=== PATIENT | male | born 1995 | race Caucasian/White ===

== ENCOUNTER 2018-09-10 15:28 | Inpatient (IN) | payer MEDICAID, SELFPAY ==
[~2018-09-10] VITALS: Ht 177.8 cm; Wt 111.4 kg
[2018-09-10 16:08] LABS: HEMOGLOBIN 16.5 g/dl (13.5-17.5); MEAN CORPUSCULAR HGB CONC 35.9 g/dl (32.0-36.5); MEAN CORPUSCULAR VOLUME 86.5 fl (80.0-96.0); PLATELET COUNT, AUTOMATED 229 10^3/uL (150-450); RED BLOOD COUNT 5.32 10^6/uL (4.30-6.10); WHITE BLOOD COUNT 12.7 10^3/uL (4.0-10.0)
[2018-09-10 16:33] LABS: AMPHETAMINES LEVEL URINE NEGATIVE (NEGATIVE); BARBITURATES URINE NEGATIVE (NEGATIVE); BENZODIAZEPINES URINE NEGATIVE (NEGATIVE); CANNABINOIDS URINE NEGATIVE (NEGATIVE); COCAINE METABOLITE URINE NEGATIVE (NEGATIVE); METHADONE URINE NEGATIVE (NEGATIVE); OPIATES URINE NEGATIVE (NEGATIVE); PHENCYCLIDINE URINE NEGATIVE (NEGATIVE)
--- NOTE | 2018-09-10 18:00 | REP ---
Clinical: Trauma. Technique: AP, lateral, bilateral oblique views of the right ankle. Findings: Lateral swelling consist with inversion injury. No acute fracture or dislocation. Ankle mortise intact. Impression: Lateral swelling. No acute fracture. Electronically Signed by Cirilo Lee MD 09/10/2018 05:51 P
[2018-09-10 18:54] LABS: ACETAMINOPHEN LEVEL < 2.0 UG/ML (10.0-30.0); ALBUMIN 4.1 GM/DL (3.2-5.2); ALT/SGPT 77 U/L (12-78); BILIRUBIN,DIRECT 0.2 MG/DL (0.0-0.2); BILIRUBIN,TOTAL 0.8 MG/DL (0.2-1.0); BLOOD UREA NITROGEN 7 MG/DL (7-18); CALCIUM LEVEL 9.3 MG/DL (8.5-10.1); CARBON DIOXIDE LEVEL 26 MEQ/L (21-32); CHLORIDE LEVEL 103 MEQ/L (98-107); CREATININE FOR GFR 0.92 MG/DL (0.70-1.30); ETHYL ALCOHOL (ETHANOL) < 0.003 % (0.000-0.010); GLOMERULAR FILTRATION RATE > 60.0 (>60); GLUCOSE, FASTING 88 MG/DL (70-100); POTASSIUM SERUM 3.8 MEQ/L (3.5-5.1); SALICYLATE LEVEL < 1.7 MG/DL (5.0-30.0); SODIUM LEVEL 139 MEQ/L (136-145); TOTAL PROTEIN 8.2 GM/DL (6.4-8.2)
[2018-09-10] MEDS ORDERED: NICOTINE 21MG/24HR 1 EA TRANSDERMAL TD ONE (19:00)
[2018-09-10] MEDS ORDERED: MAALOX 30 ML SUSP *UDC PO PRN (19:45)
[2018-09-10] MEDS ORDERED: MOM 30ML SUSPENSION UDC PO PRN (19:45)
[2018-09-10 21:14] VITALS: BP 156/87
[2018-09-11 06:39] VITALS: BP 130/66
[2018-09-11] MEDS: hydrOXYzine 50 MG TAB PO PRN (08:08)
[2018-09-11] MEDS: NICOTINE 14 MG/24 HR TRANSDERMAL TD SCH (08:08)
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
[2018-09-11] MEDS ORDERED: SERTRALINE HCL 25 MG TABLET PO ONE (13:00)
[2018-09-11 18:00] VITALS: BP 158/84
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
[2018-09-11] MEDS: risperiDONE 1 MG TAB PO SCH (20:22)
[2018-09-12 06:36] VITALS: BP 132/67
[2018-09-12] MEDS: NICOTINE 14 MG/24 HR TRANSDERMAL TD SCH (08:51)
[2018-09-12] MEDS: SERTRALINE HCL 25 MG TABLET PO SCH (08:52)
--- NOTE | 2018-09-12 08:58 | MHIPNPDOC ---
[facility] Progress Note Progress Note DATE OF SERVICE: 09/12/18 HISTORY:Patient is a 23 -year-old , male, with no previous psych history who presented to the ED with his PO as he is currently on probation for stealing a 4-snow after he admitted to daily SI with plan to jump off a bridge and land on his head and snap his neck during a meeting early per ED. In ED pt stated he would work himself up to acting on his SI by telling himself "Today's the day... I'm going to do it" then talk himself out of it. Per ED, pt stated that he had few supports in his life and his parents were "sort of supportive, feeling lonely due to not being in a relationship currently and wanting to be, and wanting therapy so he didn't feel the way he did as believed it would help. Pt also stated in the ED the his main trigger for depression, anxiety, and SI was financial stress as he works two jobs and still has difficulty paying his bills. VITAL SIGNS: See below. NEW TEST RESULTS: See below. CURRENT MEDICATIONS: See below. MENTAL STATUS EXAMINATION: General Appearance: well groomed, appears stated age, hospital scrubs/clothing Build: average Demeanor: average Eye Contact: average Activity: average Behavior: cooperative Speech: clear, spontaneous, reg/rate,rhythm,volume Mood: less depressed and anxious Mood "much better" Affect: full, appropriate, congruent, less anxious Thought Process: logical/linear, intact, other (limited impulse control) Thought Content (Delusions): none reported, denies SI, HI, AVH Thought Content (Other): appropriate Thought Content (Aggressive): none reported Perception (Hallucinations): none reported Perception (Other): none reported Cognition (Impairment of): none reported Cognition(Intelligence Est.): other (below average secondary TBI) Oriented: Awake, Alert, Oriented times three Insight: fair Judgment: Fair Psychosis: Denies DIAGNOSES: Depression Unspecified R/O Impulse Control d/o secondary TBI Hx TBI Hx ADHD Mild Intellectual Ability ASSESSMENT:Pt seen and states that his mood is "much better" and appears less depressed and anxious, more positive, denies intrusive thoughts of being bullied as a child. States he slept very well last night and woke up refreshed this morning. Feels he is tolerating his medications and they're very beneficial. He is attending groups and finding them helpful. He denies SI/HI, hallucinations, delusions. Pt feels safe here. MANAGEMENT PLAN: continue plan. Medications: risperdal 1mg qhs zoloft 25mg daily vistaril 25mg q6hr prn anxiety haldol 5mg q6hr prn anxiety/agitation TIME SPENT: 30 minutes. Vital Signs Vital Signs Date Time Temp Pulse Resp B/P (MAP) Pulse Ox O2 Delivery O2 Flow Rate FiO2 09/12/18 06:36 97.8 72 14 132/67 (88) 09/10/18 21:14 98 09/10/18 15:33 Room Air Current Medications Current Medications Acetaminophen (Tylenol Tab) 650 mg Q6HP PRN PO HEADACHE or DISCOMFORT; Start 09/10/18 at 19:45 Al Hydrox/Mg Hydrox/Simethicone (Mylanta) 30 ml Q4HP PRN PO HEARTBURN/INDIGESTION; Start 09/10/18 at 19:45 Home Med (Med Rec Complete!) ASDIRECTED XX ; Start 09/10/18 at 19:15; Stop 09/10/18 at 19:15; Status DC Hydroxyzine HCl (Atarax) 50 mg Q6HP PRN PO ANXIETY/AGITATION Last administered on 09/11/18at 08:08; Start 09/10/18 at 19:45 Magnesium Hydroxide (Milk Of Magnesia) 30 ml DAILYPRN PRN PO CONSTIPATION; Start 09/10/18 at 19:45 Nicotine (Nicoderm Cq 14mg) 1 patch DAILY TD Last administered on 09/11/18at 08:08; Start 09/11/18 at 09:00 Risperidone (RisperDAL) 1 mg QHS PO Last administered on 09/11/18at 20:22; Start 09/11/18 at 21:00 Sertraline HCl (Zoloft) 25 mg DAILY PO ; Start 09/12/18 at 09:00 Trazodone HCl (Desyrel) 50 mg QHSP PRN PO INSOMNIA; Start 09/10/18 at 19:45 Allergies Coded Allergies: No Known Allergies (Unverified , 09/10/18) AUGUSTO WIGGINS DO Sep 12, 2018 8:58 am
[2018-09-12 18:14] VITALS: BP 139/91
[2018-09-12] MEDS: risperiDONE 1 MG TAB PO SCH (20:51)
[2018-09-13 06:26] VITALS: BP 146/80
[2018-09-13] MEDS: NICOTINE 14 MG/24 HR TRANSDERMAL TD SCH (08:37)
[2018-09-13] MEDS: SERTRALINE HCL 25 MG TABLET PO SCH (08:37)
--- NOTE | 2018-09-13 15:27 | MHIPN ---
DATE OF SERVICE: 09/13/2018 The patient today tells me "I'm feeling only positive energy." He says he is not having any suicidal thoughts. He also slept, and he has no complaints. MENTAL STATUS EXAMINATION: He is alert and oriented times three. Eye contact is fairly good. Psychomotor activity is normal. He is verbally spontaneous. There is no formal thought disorder noted. He says his mood is good. His affect if full range and appropriate. He is not psychotic, suicidal, or homicidal. Concentration is fair. Memory intact. Insight and judgment is fair. DIAGNOSES: Unspecified depressive disorder, rule out impulse control disorder secondary to traumatic brain injury (TBI), history of traumatic brain injury, history of attention deficit hyperactivity disorder (ADHD), and intellectual disability mild. TREATMENT PLAN: We will continue to monitor the patient for continued elevation and stabilization of his mood and for continued resolution of any suicidal ideations.
[2018-09-13] MEDS: hydrOXYzine 50 MG TAB PO PRN (17:50)
[2018-09-13] MEDS: ACETAMINOPHEN TAB 650MG DOSE (2X325MG) PO PRN (17:50)
[2018-09-13 18:03] VITALS: BP 150/85
[2018-09-13] MEDS: risperiDONE 1 MG TAB PO SCH (21:32)
[2018-09-13] MEDS: traZODone 50 MG TAB PO PRN (21:32)
[2018-09-14 05:58] VITALS: BP 144/76
--- NOTE | 2018-09-14 08:54 | MHIPNPDOC ---
[facility] Progress Note Progress Note DATE OF SERVICE: 09/14/18 HISTORY: Patient is a 23 -year-old , male, with no previous psych history who presented to the ED with his PO as he is currently on probation for stealing a 4-snow after he admitted to daily SI with plan to jump off a bridge and land on his head and snap his neck during a meeting early per ED. In ED pt stated he would work himself up to acting on his SI by telling himself "Today's the day... I'm going to do it" then talk himself out of it. Per ED, pt stated that he had few supports in his life and his parents were "sort of supportive, feeling lonely due to not being in a relationship currently and wanting to be, and wanting therapy so he didn't feel the way he did as believed it would help. Pt also stated in the ED the his main trigger for depression, anxiety, and SI was financial stress as he works two jobs and still has difficulty paying his bills. VITAL SIGNS: See below. NEW TEST RESULTS: See below. CURRENT MEDICATIONS: See below. MENTAL STATUS EXAMINATION: General Appearance: well groomed, appears stated age, hospital scrubs/clothing Build: average Demeanor: average Eye Contact: average Activity: average Behavior: cooperative Speech: clear, spontaneous, reg/rate,rhythm,volume Mood: less depressed and anxious Mood "good" Affect: full, appropriate, congruent, less anxious Thought Process: logical/linear, intact, other (limited impulse control) Thought Content (Delusions): none reported, denies SI, HI, AVH Thought Content (Other): appropriate Thought Content (Aggressive): none reported Perception (Hallucinations): none reported Perception (Other): none reported Cognition (Impairment of): none reported Cognition(Intelligence Est.): other (below average secondary TBI) Oriented: Awake, Alert, Oriented times three Insight: fair Judgment: Fair Psychosis: Denies DIAGNOSES: Depression Unspecified R/O Impulse Control d/o secondary TBI Hx TBI Hx ADHD Mild Intellectual Ability ASSESSMENT:Pt seen and states that his mood is "good" and appears less depressed and anxious, more positive, denies intrusive thoughts of being bullied as a child. States he slept very well last night. Feels he is tolerating his medications and they're very beneficial. He is attending groups and finding them helpful. He denies SI/HI, hallucinations, delusions. Pt feels safe here. MANAGEMENT PLAN: continue plan. Medications: risperdal 1mg qhs zoloft 25mg daily vistaril 25mg q6hr prn anxiety haldol 5mg q6hr prn anxiety/agitation TIME SPENT: 30 minutes. Vital Signs Vital Signs Date Time Temp Pulse Resp B/P (MAP) Pulse Ox O2 Delivery O2 Flow Rate FiO2 09/14/18 05:58 99.3 70 18 144/76 (98) 09/10/18 21:14 98 09/10/18 15:33 Room Air Current Medications Current Medications Acetaminophen (Tylenol Tab) 650 mg Q6HP PRN PO HEADACHE or DISCOMFORT Last administered on 09/13/18 17:50; Start 09/10/18 at 19:45 Al Hydrox/Mg Hydrox/Simethicone (Mylanta) 30 ml Q4HP PRN PO HEARTBURN/INDIGESTION; Start 09/10/18 at 19:45 Home Med (Med Rec Complete!) ASDIRECTED XX ; Start 09/10/18 at 19:15; Stop 09/10/18 at 19:15; Status DC Hydroxyzine HCl (Atarax) 50 mg Q6HP PRN PO ANXIETY/AGITATION Last administered on 09/13/18at 17:50; Start 09/10/18 at 19:45 Magnesium Hydroxide (Milk Of Magnesia) 30 ml DAILYPRN PRN PO CONSTIPATION; Start 09/10/18 at 19:45 Nicotine (Nicoderm Cq 14mg) 1 patch DAILY TD Last administered on 09/13/18at 08:37; Start 09/11/18 at 09:00 Risperidone (RisperDAL) 1 mg QHS PO Last administered on 09/13/18 21:32; Start 09/11/18 at 21:00 Sertraline HCl (Zoloft) 25 mg DAILY PO Last administered on 09/13/18at 08:37; Start 09/12/18 at 09:00 Trazodone HCl (Desyrel) 50 mg QHSP PRN PO INSOMNIA Last administered on 09/13/18 21:32; Start 09/10/18 at 19:45 Allergies Coded Allergies: No Known Allergies (Unverified , 09/10/18) AUGUSTO WIGGINS DO Sep 14, 2018 8:54 am
[2018-09-14] MEDS: SERTRALINE HCL 25 MG TABLET PO SCH (10:02)
[2018-09-14] MEDS: NICOTINE 14 MG/24 HR TRANSDERMAL TD SCH (10:02)
[2018-09-14] MEDS: ACETAMINOPHEN TAB 650MG DOSE (2X325MG) PO PRN (16:35)
[2018-09-14 18:00] VITALS: BP 145/100
[2018-09-14] MEDS: hydrOXYzine 50 MG TAB PO PRN (19:03)
[2018-09-14 19:04] VITALS: BP 158/102
[2018-09-14] MEDS: risperiDONE 1 MG TAB PO SCH (20:07)
[2018-09-14] MEDS: traZODone 50 MG TAB PO PRN (22:04)
[2018-09-15 06:39] VITALS: BP 130/82
[2018-09-15] MEDS: NICOTINE 14 MG/24 HR TRANSDERMAL TD SCH (08:19)
[2018-09-15] MEDS: SERTRALINE HCL 25 MG TABLET PO SCH (08:19)
[2018-09-15 18:04] VITALS: BP 145/76
[2018-09-15] MEDS: risperiDONE 1 MG TAB PO SCH (20:31)
[2018-09-15] MEDS: traZODone 50 MG TAB PO PRN (21:40)
[2018-09-16 06:00] VITALS: BP 147/74
[2018-09-16] MEDS: NICOTINE 14 MG/24 HR TRANSDERMAL TD SCH (09:18)
[2018-09-16] MEDS: SERTRALINE HCL 25 MG TABLET PO SCH (09:18)
[2018-09-16 18:03] VITALS: BP 136/78
[2018-09-16] MEDS: risperiDONE 1 MG TAB PO SCH (20:56)
[2018-09-16] MEDS: traZODone 50 MG TAB PO PRN (21:59)
[2018-09-17 06:00] VITALS: BP 109/61
[2018-09-17] MEDS: SERTRALINE HCL 25 MG TABLET PO SCH (08:45)
[2018-09-17] MEDS: NICOTINE 14 MG/24 HR TRANSDERMAL TD SCH (08:46)
[2018-09-17] MEDS ORDERED: NICO14PA TD (12:00)
[2018-09-17] MEDS ORDERED: SERT25TA88 PO (12:00)
[2018-09-17] MEDS ORDERED: RISP1TAB42 PO (12:00)
--- NOTE | 2018-09-17 12:16 | MHDSPDOC ---
[facility] Discharge Summary Discharge Summary DATE OF ADMISSION: Sep 10, 2018 at 19:40 DATE OF DISCHARGE: 09/17/18 Discharge Carlos Peters Male Date of Service: 09/17/2018 Diagnoses Unspecified depressive disorder. Mild intellectual inability. Major neurocognitive disorder, unspecified. History of Present Illness The patient is a 23-year-old man with no previous psychiatric history, presented to the emergency room after discussing suicidal ideation after encountering multiple psychosocial stressors. Noted that he had triggers at the time of financial stress and difficulty paying his bills. Consultants Involved Hospitalist screening. Treatment and Progress On The Unit The patient was admitted to the inpatient unit where he initially was observed to be amenable to treatment. He was subsequently started and tapered up to medications including Risperdal 1 mg at night, Zoloft 25 mg daily with PRN Vistaril and Haldol as needed for agitation that did well for controlling his agitation. He was subsequently noted to improve greatly with no further suicidal thoughts over the weekend and was able to verbalize effective discharge plans, reporting that he wanted to leave so that he can "go to work." He reported that he felt sufficiently well to return home. His primary doctor, Dr. Bass had slated him for discharge and he was deemed on the date of discharge to be safe for discharge at that time. Discharge Assessment A 23-year old man with a history of unspecified neurocognitive difficulties with a possible adjustment problem. He has multiple potential neurological correlates such as ADHD and a potential TBI that could cause him to experience emotions more intensely and thus be less able to adapt to his emotional setting. He was deemed safe for discharge as he was not demonstrating any suicidal or homicidal ideation. He demonstrated no psychosis and was able to verbalize an effective discharge plan. Mental Status Examination General: Well dressed with good hygiene Speech: Spontaneous and fluid Thought processes: Linear and logical MSK: Smooth and coordinated gait, no signs of tremors or involuntary orofacial movements Thought content: Future orientated Abstract reasoning, and computation: Intact Description of associations: Intact Description of abnormal or psychotic thoughts: Denies any suicidal or homicidal ideation. Denies any auditory or visual hallucinations. Does not appear to be responding to internal stimuli. Does not appear to be endorsing any bizarre or paranoid ideation. Judgment: fair Insight: fair Orientation: Alert and orientated 3 Cognition: Grossly normal Recent and remote memory: Intact Attention span and concentration: Intact Fund of knowledge: Below average secondary to reported TBI. Mood: "okay" Affect: Euthymic with a full range Follow Up The social work team worked during the predischarge meeting in order to evaluate for further issues of lethality address them fully before discharge. They worked on safety planning with the patient's family members in order to ensure that the patient will have a safe and effective discharge. Lipid panel and A1c completed showing some increased lipids however, it was not fasting, but should be followed up by outpatient provider if continued on risperidone The amount of time spent in the coordination of care for this patient was approximately 30 minutes. Vital Signs/I&Os Vital Signs Date Time Temp Pulse Resp B/P (MAP) Pulse Ox O2 Delivery O2 Flow Rate FiO2 09/17/18 06:00 98.0 84 18 109/61 (77) 09/15/18 06:39 100 Laboratory Data Labs 24H Laboratory Tests 09/17/18 13:06: Estimated Mean Plasma Glucose 103, Hemoglobin A1c 5.2, Triglycerides Level 167H, LDL Cholesterol 141H, Total Cholesterol 212H, Non-HDL Cholesterol (LDL + VLDL) 174, Total HDL Cholesterol 38L, Cholesterol/HDL Ratio 5.578H Medications Scheduled Nicotine (Nicotine Patch) 14 Mg Patch.td24, 1 PATCH TD DAILY for smoking for 30 Days, #30 Risperidone (Risperdal) 1 Mg Tablet, 1 MG PO QHS for mood for 7 Days, #7 Sertraline HCl (Sertraline HCl) 25 Mg Tablet, 25 MG PO DAILY for mood for 7 Days, #7 Allergies Coded Allergies: No Known Allergies (Unverified , 09/10/18) SAVI COLLINS DO Sep 17, 2018 12:16
[2018-09-17 13:54] LABS: HEMOGLOBIN A1c 5.2 %
[2018-09-17 13:57] LABS: CHOLESTEROL RISK RATIO 5.578 (<5)
== END 2018-09-17 14:30 | disposition home or self-care (01) | DRG 754 ==
LOC: M ED 15:28 → M ED INP 19:40 → M PSY 21:00
PROVIDERS: ADMIT Psychiatry & Neurology Psychiatry; ATTEND Psychiatry & Neurology Psychiatry
DX: F32.9 Major depressive disorder, single episode, unspecified (principal); F71 Moderate intellectual disabilities; F01.50 Vascular dementia, unspecified severity, without behavioral disturbance, psychotic disturbance, mood disturbance, and anxiety; R45.851 Suicidal ideations; Z59.8 Other problems related to housing and economic circumstances

== ENCOUNTER 2019-04-18 21:59 | Inpatient (IN) | payer MEDICAID, OTHER ==
[~2019-04-18] VITALS: Ht 180.3 cm; Wt 107.2 kg
[~2019-04-18 21:59] MED LIST: NICO14PA TD; RISP1TAB42 PO; SERT25TA21 PO
[2019-04-18 23:22] LABS: HEMATOCRIT 41.6 % (42.0-52.0); HEMOGLOBIN 14.4 g/dl (13.5-17.5); MEAN CORPUSCULAR HEMOGLOBIN 29.9 pg (27.0-33.0); MEAN CORPUSCULAR HGB CONC 34.6 g/dl (32.0-36.5); MEAN CORPUSCULAR VOLUME 86.5 fl (80.0-96.0); PLATELET COUNT, AUTOMATED 192 10^3/uL (150-450); RED BLOOD COUNT 4.81 10^6/uL (4.30-6.10); WHITE BLOOD COUNT 7.9 10^3/uL (4.0-10.0)
[2019-04-18 23:43] LABS: AMPHETAMINES LEVEL URINE NEGATIVE (NEGATIVE); BARBITURATES URINE NEGATIVE (NEGATIVE); BENZODIAZEPINES URINE NEGATIVE (NEGATIVE); CANNABINOIDS URINE POSITIVE (NEGATIVE); COCAINE METABOLITE URINE NEGATIVE (NEGATIVE); METHADONE URINE NEGATIVE (NEGATIVE); OPIATES URINE NEGATIVE (NEGATIVE); PHENCYCLIDINE URINE NEGATIVE (NEGATIVE)
[2019-04-18 23:57] LABS: ACETAMINOPHEN LEVEL < 2.0 UG/ML (10.0-30.0); ALBUMIN 3.6 GM/DL (3.2-5.2); ALT/SGPT 45 U/L (12-78); BILIRUBIN,DIRECT 0.1 MG/DL (0.0-0.2); BILIRUBIN,TOTAL 0.3 MG/DL (0.2-1.0); BLOOD UREA NITROGEN 8 MG/DL (7-18); CALCIUM LEVEL 8.7 MG/DL (8.5-10.1); CARBON DIOXIDE LEVEL 28 MEQ/L (21-32); CHLORIDE LEVEL 107 MEQ/L (98-107); CREATININE FOR GFR 0.88 MG/DL (0.70-1.30); ETHYL ALCOHOL (ETHANOL) < 0.003 % (0.000-0.010); GLOMERULAR FILTRATION RATE > 60.0 (>60); GLUCOSE, FASTING 90 MG/DL (70-100); POTASSIUM SERUM 3.9 MEQ/L (3.5-5.1); SALICYLATE LEVEL < 1.7 MG/DL (5.0-30.0); SODIUM LEVEL 141 MEQ/L (136-145); TOTAL PROTEIN 7.4 GM/DL (6.4-8.2)
--- NOTE | 2019-04-19 06:00 | ECGEPIP ---
[facility] - ED Test Date: 2019-04-19 Pat Name: JOHN FARAH Department: Room: - Gender: Male Process Stripper: sb : 1995 Requested By: TERRENCE Stone Order Number: [id number] Reading MD: Rambo Maritnez Measurements Intervals [place] Rate: 78 P: 58 VT: 151 QRS: 54 QRSD: 96 T: 38 QT: 384 QTc: 438 Interpretive Statements SINUS RHYTHM WITH OCCASIONAL VENTRICULAR PREMATURE COMPLEXES POSSIBLE INCOMPLETE RIGHT BUNDLE BRANCH BLOCK BENIGN EARLY REPOLARIZATION NO PRIORS FOR COMPARISON Electronically Signed on 04-19-2019 5:59:59 EST by Rambo Martinez
[2019-04-19] MEDS ORDERED: MOM 30ML SUSPENSION UDC PO PRN (15:00)
[2019-04-19] MEDS ORDERED: traZODone 50 MG TAB PO PRN (15:00)
[2019-04-19] MEDS ORDERED: MAALOX 30 ML SUSP *UDC PO PRN (15:00)
[2019-04-19] MEDS ORDERED: ACETAMINOPHEN TAB 650MG DOSE (2X325MG) PO PRN (15:00)
[2019-04-19 15:38] VITALS: BP 142/88
[2019-04-19] MEDS: NICOTINE 21MG/24HR 1 EA TRANSDERMAL TD SCH (17:23)
[2019-04-20 05:57] VITALS: BP 133/56
[2019-04-20] MEDS ORDERED: INFLUENZA QUADRIVALENT PF VACCINE 0.5ML SYRINGE (90686) IM ONE (09:00)
[2019-04-20] MEDS: NICOTINE 21MG/24HR 1 EA TRANSDERMAL TD SCH (09:22)
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
[2019-04-20] MEDS ORDERED: SERTRALINE HCL 50 MG TAB PO ONE (11:00)
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
[2019-04-20 16:16] VITALS: BP 130/88
[2019-04-20] MEDS: MIRTAZAPINE 15 MG TAB PO SCH (23:28)
[2019-04-21 06:30] VITALS: BP 132/75
[2019-04-21] MEDS: NICOTINE 21MG/24HR 1 EA TRANSDERMAL TD SCH (09:03)
[2019-04-21] MEDS: SERTRALINE HCL 50 MG TAB PO SCH (09:03)
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
[2019-04-21 16:05] VITALS: BP 134/74
[2019-04-21] MEDS: MIRTAZAPINE 15 MG TAB PO SCH (23:02)
[2019-04-22 06:47] VITALS: BP 136/81
[2019-04-22] MEDS: SERTRALINE HCL 50 MG TAB PO SCH (09:23)
[2019-04-22] MEDS: NICOTINE 21MG/24HR 1 EA TRANSDERMAL TD SCH (09:23)
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
[2019-04-22 16:19] VITALS: BP 149/69
[2019-04-22] MEDS: MIRTAZAPINE 15 MG TAB PO SCH (21:37)
[2019-04-23 06:25] VITALS: BP 128/70
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
[2019-04-23] MEDS: SERTRALINE HCL 50 MG TAB PO SCH (09:14)
[2019-04-23] MEDS: NICOTINE 21MG/24HR 1 EA TRANSDERMAL TD SCH (09:15)
[2019-04-23 15:41] VITALS: BP 132/82
[2019-04-23] MEDS: MIRTAZAPINE 15 MG TAB PO SCH (21:17)
[2019-04-24 06:06] VITALS: BP 134/85
[2019-04-24] MEDS: SERTRALINE HCL 50 MG TAB PO SCH (08:30)
[2019-04-24] MEDS: NICOTINE 21MG/24HR 1 EA TRANSDERMAL TD SCH (08:31)
[2019-04-24] MEDS ORDERED: REME15TA PO (08:40)
[2019-04-24] MEDS ORDERED: SERT50TA29 PO (08:40)
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
== END 2019-04-24 10:55 | disposition home or self-care (01) | DRG 754 ==
LOC: M ED 21:59 → M ED INP 04-19 14:50 → M PSY 04-19 15:54
PROVIDERS: ADMIT Psychiatry & Neurology Psychiatry; ATTEND Psychiatry & Neurology Psychiatry
DX: F32.9 Major depressive disorder, single episode, unspecified (principal); F70 Mild intellectual disabilities; E66.9 Obesity, unspecified; F43.23 Adjustment disorder with mixed anxiety and depressed mood; F17.200 Nicotine dependence, unspecified, uncomplicated

== ENCOUNTER 2020-02-27 23:12 | Emergency (ER) | payer MEDICAID ==
[~2020-02-27] VITALS: Ht 180.3 cm; Wt 157.9 kg
[~2020-02-27 23:12] MED LIST changes: +MIRT-62 PO; +SERT50TA29 PO
[2020-02-27 23:14] VITALS: BP 143/96
== END 2020-02-28 02:43 | disposition left against medical advice (07) ==
LOC: M ED 23:12
DX: Z53.21 Procedure and treatment not carried out due to patient leaving prior to being seen by health care provider (principal)

== ENCOUNTER → 2020-02-28 | Outpatient (CLI) | payer MEDICAID ==
--- NOTE | 2020-02-28 13:28 | REP ---
INDICATION: PAIN IN RIGHT ANKLE AND JOINTS OF RIGHT FOOT COMPARISON: 09/10/2018. TECHNIQUE: Four views. FINDINGS: I suspect there is soft tissue edema laterally. This should be confirmed clinically. There is no fracture or dislocation. Mineralization is normal. There are no calcifications or foreign bodies. IMPRESSION: No fracture or dislocation. Probable soft tissue edema laterally. This should be confirmed clinically. <Electronically signed by Osorio Lo > 02/28/20 9500
== END ==
LOC: M ADAMS 09:23
PROVIDERS: ATTEND Physician Assistant
DX: M25.571 Pain in right ankle and joints of right foot (principal)

== ENCOUNTER → 2020-12-18 | Outpatient (REF) | payer MEDICAID ==
[2020-12-18 22:03] LABS: GC DNA AMPLIFICATION NEGATIVE (NEGATIVE)
== END ==
LOC: M LAB REF 19:34
PROVIDERS: ATTEND Physician Assistant
DX: R30.0 Dysuria (principal)

== ENCOUNTER 2021-02-06 01:19 | Emergency (ER) | payer MEDICAID ==
[~2021-02-06] VITALS: Ht 175.3 cm; Wt 113.6 kg
--- OUTSIDE RECORDS SUMMARY | 2021-02-06 01:27 | CCD | Continuity of Care Document ---
Author Author Carlos COOK Organization Unknown Address [address] [place] [address] Phone [phone] Care Team Providers Care Paper Bag Press Operator Name Role Phone [facility] AUTM [phone] Problems Description No Information Available Social History Type Date Description Comments Sex Unknown ETOH Use Occasionally consumes alcohol Recreational Drug Use daily marijuana user Tobacco Use Start: Unknown End: Unknown Patient is a former smoker quit 10/2020 Tobacco Use Start: Unknown Patient Currently Vapes 5% Smoking Status Reviewed: 02/28/20 Patient Currently Vapes 5% Allergies, Adverse Reactions, Alerts Description No Known Drug Allergies Medications Active Medications SIG Qnty Indications Ordering Provide r Date Preparation H Unknown Immunizations Description No Information Available Vital Signs Date Vital Result Comment 12/18/2020 5:57pm BP Systolic 128 mmHg BP Diastolic 82 mmHg Heart Rate 83 /min Respiratory Rate 14 /min O2 % BldC Oximetry 96 % Body Temperature 97.1 F Weight 236.00 lb Height 70 inches 5'10" BMI (Body Mass Index) 33.9 kg/m2 Pain Level 2 02/28/2020 8:55am BP Systolic 147 mmHg BP Diastolic 94 mmHg Heart Rate 81 /min Respiratory Rate 16 /min O2 % BldC Oximetry 98 % Body Temperature 98.9 F Weight 250.00 lb Height 70 inches 5'10" BMI (Body Mass Index) 35.9 kg/m2 Pain Level 7 Results Test Acquired Date Facility Test Result H/L Range Note Laboratory test finding 12/18/2020 [facility] [address] [place], [place] [id number] [phone] Urine Culture <pending> Procedures Date Code Description Status 12/18/2020 24380 Office/Outpatient Established Lo w MDM 20-29 Min Completed Medical Devices Description No Information Available Encounters Type Date Location Provider Dx Diagnosis Office Visit 12/18/2020 5:25p Main Office HERNÁN Ravi R30 .0 Dysuria J06.9 Acute upper respiratory infe ction, unspecified Z20.828 Contact w and exposure to ot h viral communicable diseases Assessments Date Code Description Provider 12/18/2020 R30.0 Dysuria HERNÁN Lees 12/18/2020 J06.9 Acute upper respiratory infectio n, unspecified HERNÁN Ravi 12/18/2020 Z20.828 Contact with and (castañeda spected) exposure to other viral communicable diseases HERNÁN Ravi Plan of Treatment No Information Available Functional Status Description No Information Available Mental Status Description No Information Available Referrals Description No Information Available
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
--- OUTSIDE RECORDS SUMMARY | 2021-02-06 01:27 | CCD | Continuity of Care Document ---
Author Author Carlos COOK Organization Unknown Address [address] [place] [address] Phone [phone] Care Team Providers Care Veterinarian Assistant Name Role Phone [facility] AUTM [phone] Problems Description No Information Available Social History [...] H/L Range Note Laboratory test finding 12/18/2020 [facility] [address] [place], [place] [address] [phone] Urine Culture <pending> Procedures Date Code Description Status 12/18/2020 89418 Office/Outpatient Established Lo w MDM 20-29 Min [...]
--- OUTSIDE RECORDS SUMMARY | 2021-02-06 01:27 | CCD | Continuity of Care Document ---
Author Author Carlos COOK Organization Unknown Address [address] [place] [address] Phone [phone] Care Team Providers Care Diesel Engine Erector Name Role Phone [facility] AUTM [phone] Problems Description No Information Available Social History [...] H/L Range Note Laboratory test finding 12/18/2020 [facility] [address] [place] [address] [phone] Urine Culture FULL REPORT IN L <SEE NOTE> Normal 1 Chlamydia, GC & Trich Amp 12/18/[address] [facility] [address] [address] [phone] Chlamydia Dna Amplification NEGATIVE Normal Nega tive 2 GC Dna Amplification NEGATIVE Normal Negative 3 Trichomonas vaginalis (Amp) NOT DETECTED Normal Negative 4 1 FULL REPORT IN LAB NOTES (eC W and [facility]). NO GROWTH CLINICAL SIGNIFICANCE 1 ORGANISM 2 A negative test result does not exclude the possibility of infection because test results may be affected by improper specimen collection, technical error, specimen mix-up, concurrent antibiotic therapy, or the number of organisms in the specimen which may be below the sensitivity of the test. 3 A negative test result does not exclude the possibility of infection because test results may be affected by improper specimen collection, technical error, specimen mix-up, concurrent antibiotic therapy, or the number of organisms in the specimen which may be below the sensitivity of the test. 4 A negative test result does not exclude the possibility of infection because test results may be affected by improper specimen collection, technical error, sample mix-up, or because the number of organisms in the sample is below the limit of detection of the test. Procedures Date Code Description Status 12/18/2020 02969 Office/Outpatient Established Lo w MDM 20-29 Min [...]
--- OUTSIDE RECORDS SUMMARY | 2021-02-06 01:27 | CCD ---
Author Author Carlos Arzate Organization Unknown Address [address] [address] Phone Care Team Providers Care Clinical Program Manager Name Role Phone Marivel Arzaet PCP Allergies, Adverse Reactions, Alerts No Data in Section Problem List Concept Problem Description Status Start Date Created Date Resolv ed Date Snomed Code F43.9 Unspecified Trauma- and Stressor-Related Disorder Active 01/26/2021 F12.20 Cannabis Use Disorder, Moderate Active 01/27/20 21 Z72.0 Tobacco Use Disorder, Mild Active 01/26/2021 Medications No Data in Section Social History Social History Element Description Concept Effective Date Smoking Status Unknown if ever smoked [id number] Immunizations No Data in Section Vital Signs No Data in Section Procedures Date Concept Id Description Targeted Site Concept Targeted Site Concept Type 01/25/2021 62571 Extended Individual Psychotherapy - 45 min CPT Patient has no history of implantable de vices Encounters Encounter Start Date End Date Encounter Type Description Diagnosis Di agnosis Desc Location Author First Name Author Last Name Npid Taxonomy Cod e Taxonomy Desc Phone Number Location Addr1 Location Addr2 Location [facility] Location [facility] Location [facility] [id number] 01/25/2021 01/25/2021 02293 Extended Individual Psych otherapy - 45 min F43.9 Reaction to severe stress, unspecified [facility] Huey Orta [id number] Tank Erector [phone] [address] [address] Plan of Treatment No Data in Section Lab Results No Data in Section Instructions No Data in Section Insurance Providers Insurance Id Policy Effective Date Policy Thru Date Company N z[employer]ya [id number] 2020 [employer] Managed M' caijoanne
--- OUTSIDE RECORDS SUMMARY | 2021-02-06 01:27 | CCD | Continuity of Care Document ---
Author Author Carlos COOK Organization Unknown Address [address] [place] [address] Phone [phone] Care Team Providers Care Spring Tester Name Role Phone [facility] AUTM [phone] Problems Description No Information Available Social History [...] Date Facility Test Result H/L Range Note Chlamydia, GC & Trich Amp 12/18/2020 [facility] [address] [place], [place] [address] [phone] Chlamydia Dna Amplification NEGATIVE Normal Nega tive 1 GC Dna Amplification NEGATIVE Normal Negative 2 Trichomonas vaginalis (Amp) NOT DETECTED Normal Negative 3 1 A negative test result does not exclude the possibility of infection because test results may be affected by improper specimen collection, technical error, specimen mix-up, concurrent antibiotic therapy, or the number of organisms in the specimen which may be below the sensitivity of the test. 2 A negative test result does not [...] test. Procedures Date Code Description Status 12/18/2020 95389 Office/Outpatient Established Lo w MDM 20-29 Min [...] J06.9 Acute upper respiratory infectio n, unspecified EHRNÁN Ravi 12/18/2020 Z20.828 Contact with and (castañeda spected) exposure to other viral communicable diseases HERNÁN Ravi Plan of Treatment No Information Available Functional Status Description No Information Available Mental Status Description No Information Available Referrals Description No Information Available
--- OUTSIDE RECORDS SUMMARY | 2021-02-06 01:27 | CCD ---
Author Author Carlos Arzate Organization Unknown Address [address] [address] Phone Care Team Providers Care Gun Welder Name Role Phone Marivel Arzate PCP Chief Complaint and Reason for Visit Chief Complaint Allergies, Adverse Reactions, Alerts No Data in Section Problem List Concept Problem Description Status Start Date Created Date Resolv ed Date Snomed Code F43.9 Unspecified Trauma- and Stressor-Related Disorder Active 11/24/2020 F12.20 Cannabis Use Disorder, Moderate Active 11/25/19 21 Z72.0 Tobacco Use Disorder, Mild Active 11/24/2020 Medications No Data in Section Social History Social History Element Description Concept Effective Date Smoking Status Unknown if ever smoked [id number] Immunizations No Data in Section Vital Signs No Data in Section Procedures Date Concept Id Description Targeted Site Concept Targeted Site Concept Type 11/23/2020 49811 Extended Individual Psychotherapy - 45 min CPT Patient has no history of implantable de vices Encounters Encounter Start Date End Date Encounter Type Description Diagnosis Di agnosis Desc Location Author First Name Author Last Name Npid Taxonomy Cod e Taxonomy Desc Phone Number Location Addr1 Location Addr2 Location [facility] Location [facility] Location [facility] [id number] 11/23/2020 11/23/2020 11626 Extended Individual Psych otherapy - 45 min F43.9 Reaction to severe stress, unspecified [facility] Huey Orta [id number] [facility] [phone] [address] [address] Plan of Treatment No Data in Section Lab Results No Data in Section Instructions No Data in Section Insurance Providers Insurance Id Policy Effective Date Policy Thru Date Company N z[employer] [id number] 2020 [employer] Managed M' caid
--- OUTSIDE RECORDS SUMMARY | 2021-02-06 01:28 | CCD ---
Author Author [facility] Organization [facility] Address Unknown Phone Unavailable Care Team Providers Care Campus Security Director Name Role Phone JOEY, Jeffery THORNTON PA Unavailable Unavailable LETTIERE, Jeffery THORNTON PA Unavailable Unavailable LETTIERE, Jeffery THORNTON PA Unavailable Unavailable LETTIERE, Jeffery THORNTON PA Unavailable Unavailable LETTIERE, Jeffery THORNTON PA Unavailable Unavailable LETTIERE, Jeffery THORNTON PA Unavailable Unavailable LETTIERE, Jeffery THORNTON PA Unavailable Unavailable LETTIERE, Jeffery THORNTON PA Unavailable Unavailable LETTIERE, Jeffery THORNTON PA Unavailable Unavailable LETTIERE, Jeffery THORNTON PA Unavailable Unavailable LETTIERE, A HILLARY PA Unavailable Unavailable LETTIERE, A HILLARY PA Unavailable Unavailable LETTIERE, A HILLARY PA Unavailable Unavailable LETTIERE, A HILLARY PA Unavailable Unavailable LETTIERE, A HILLARY PA Unavailable Unavailable LETTIERE, A HILLARY PA Unavailable Unavailable LETTIERE, A HILLARY PA Unavailable Unavailable LETTIERE, A HILLARY PA Unavailable Unavailable LETTIERE, A HILLARY PA Unavailable Unavailable LETTIERE, A HILLARY PA Unavailable Unavailable LETTIERE, A HILLARY PA Unavailable Unavailable LETTIERE, A HILLARY PA Unavailable Unavailable LETTIERE, A HILLARY PA Unavailable Unavailable LETTIERE, A HILLARY PA Unavailable Unavailable LETTIERE, A HILLARY PA Unavailable Unavailable LETTIERE, A HILLARY PA Unavailable Unavailable LETTIERE, A HILLARY PA Unavailable Unavailable LETTIERE, A HILLARY PA Unavailable Unavailable LETTIERE, A HILLARY PA Unavailable Unavailable LETTIERE, A HILLARY PA Unavailable Unavailable LETTIERE, A HILLARY PA Unavailable Unavailable Jefe Jeri Unavailable MARCOS, ABDI PA Unavailable Unavailable MARCOS, ABDI PA Unavailable Unavailable MARCOS, ABDI PA Unavailable Unavailable MARCOS, ABDI PA Unavailable Unavailable MARCOS, ABDI PA Unavailable Unavailable MARCOS, ABDI PA Unavailable Unavailable MARCOS, ABDI PA Unavailable Unavailable MARCOS, ABDI PA Unavailable Unavailable MARCOS, ABDI PA Unavailable Unavailable MARCOS, ABDI PA Unavailable Unavailable MARCOS, ABDI PA Unavailable Unavailable MARCOS, ABDI PA Unavailable Unavailable MARCOS, ABDI PA Unavailable Unavailable MARCOS, ABDI PA Unavailable Unavailable MARCOS, ABDI PA Unavailable Unavailable MARCOS, ABDI PA Unavailable Unavailable MARCOS, ABDI PA Unavailable Unavailable MARCOS, ABDI PA Unavailable Unavailable MARCOS, ABDI PA Unavailable Unavailable MARCOS, ABDI PA Unavailable Unavailable MARCOS, ABDI PA Unavailable Unavailable MARCOS, ABDI PA Unavailable Unavailable MARCOS, ABDI PA Unavailable Unavailable MARCOS, ABDI PA Unavailable Unavailable MARCOS, ABDI PA Unavailable Unavailable MARCOS, ABDI PA Unavailable Unavailable MARCOS, ABDI PA Unavailable Unavailable MARCOS, ABDI PA Unavailable Unavailable MARCOS, ABDI PA Unavailable Unavailable MARCOS, ABDI PA Unavailable Unavailable MARCOS, ABDI PA Unavailable Unavailable MARCOS, ABDI PA Unavailable Unavailable MARCOS, ABDI PA Unavailable Unavailable MARCOS, ABDI PA Unavailable Unavailable MARCOS, ABDI PA Unavailable Unavailable MARCOS, ABDI PA Unavailable Unavailable Ramon Najera Unavailable [phone] Ramon Najera Unavailable [phone] Ramon Najera Unavailable [phone] Ramon Najera Unavailable [phone] Ramon Najera Unavailable [phone] Ramon Najera Unavailable [phone] Emma Marx Unavailable Unavailable Emma Marx Unavailable Unavailable Emma Marx Unavailable Unavailable Marivel Arzate Unavailable Marivel Arzate Unavailable Re-disclosure Warning The records that you are about to access may contain information from federally-assisted alcohol or drug abuse programs. If such information is present, then the following federally mandated warning applies: This information has been disclosed to you from records protected by federal confidentiality rules (42 CFR part 2). The federal rules prohibit you from making any further disclosure of this information unless further disclosure is expressly permitted by the written consent of the person to whom it pertains or as otherwise permitted by 42 CFR part 2. A general authorization for the release of medical or other information is NOT sufficient for this purpose. The Federal rules restrict any use of the information to criminally investigate or prosecute any alcohol or drug abuse patient.The records that you are about to access may contain highly sensitive health information, the redisclosure of which is protected by Article 27-F of the [facility] Public Health law. If you continue you may have access to information: Regarding HIV / AIDS; Provided by facilities licensed or operated by the [facility] Office of Mental Health; or Provided by the [facility] Office for People With Developmental Disabilities. If such information is present, then the following [facility] mandated warning applies: This information has been disclosed to you from confidential records which are protected by state law. State law prohibits you from making any further disclosure of this information without the specific written consent of the person to whom it pertains, or as otherwise permitted by law. Any unauthorized further disclosure in violation of state law may result in a fine or intermediate sentence or both. A general authorization for the release of medical or other information is NOT sufficient authorization for further disc losure. Family History Family Member Name Family Member Gender Family Member Status Date o f Status Description Data Source(s) Unknown Female Problem [facility] ([facility]) Unknown Female Problem [facility] ([facility]) Encounters Encounter Providers Location Date Indications Data Source(s ) Attender: Marivel Arzate 01/26/2021 12:00:[address] [facility]) Extended Individual Psychotherapy - 45 min Attender: Christian Botello [facility] 01/25/2021 01:00:00 AM EST - 01/25/2021 01:00:00 AM EST [facility] ([facility]) Attender: Marivel Arzate 01/18/2021 12:00:[address] [facility] ([facility]) Psychiatric Diagnostic Evaluation (Non-Medical) Attender: Shelby jim Arzate [facility] 01/15/2021 10:30:00 AM EDT - 01/15/2021 10:30:00 AM EDT [facility] ([facility]) Outpatient Attender: Ramon Najera 12/30 05:21:07 PM EDT - 12/30/2020 06:42:33 PM EDT [facility] ([facility] ) Outpatient Attender: HILLARY driscoll 12/18/2020 05:25:00 PM EDT [facility] ([facility]) Extended Individual Psychotherapy - 45 min Attender: Christian Botello [facility] 11/23/2020 09:00:00 AM EDT - 11/23/2020 09:00:00 AM EDT [facility] ([facility]) Attender: Marivelantonina Arzate 11/23/2020 12:00:00 AM E DT [facility] ([facility]) Extended Individual Psychotherapy - 45 min Attender: Kelsey Mayberry [facility] 10/28/2020 11:45:00 AM EDT - 10/28/2020 11:45:00 AM EDT [facility] ([facility]) Attender: Jeri Mayberry 10/28/2020 12:00:00 AM EDT [facility] ([facility]) Outpatient Attender: Emma Marx 08/04/2020 10:00:00 AM [facility] Outpatient Attender: ABDI edwards 02/28/2020 07:15:00 AM EST [facility] ([facility]) Immunizations Vaccine Date Status Description Data Source(s) COVID-19 VACCINE Moderna 08/25/2020 12:00:00 AM EDT completed [facility] Vaccine Series Complete: NOThis Data was Submitted to [facility] Via [facility]. COVID-19 VACCINE Moderna 07/28/2020 12:00:00 AM EDT completed [facility] Vaccine Series Complete: YESThis Data wa s Submitted to [facility] Via [facility]. Medications Medication Brand Name Start Date Product Form Dose Route Admi nistrative Instructions Pharmacy Instructions Status Indications Reaction Description Data Source(s) Naproxen 500 MG Oral Tablet Naproxen 02/28/2020 12:00:00 AM EST ORAL active [facility] ([facility]) No Active Medications 02/28/2020 12:00:00 AM EST completed [facility] ([facility], [facility]) Insurance Providers Payer name Policy type / Coverage type Policy ID Covered green party ID Covered green party's relationship to hodge Policy Hodge Plan Information [employer] 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 Workers Compensation [id number] Self [facility] [employer] [id number] Self [id number] [facility] (HMO) [id number] 74 2.840.1.515984.3.227.99.6968.3644.0 Family Dependent Y [id number] [facility] (HMO) [id number] 74 2.16840.1.807673.3.227.99.6968.3644.0 Family Dependent Y [id number] [facility] (HMO) [id number] 74 2.16840.1.450288.3.227.99.6968.3644.0 Family Dependent Y [id number] [facility] [employer] (HMO) [id number] 74 2.16.840.1.673984.3.227.99.6968.3644.0 Family Dependent Y [id number] [facility] [employer] (HMO) [id number] 74 2.16.840.1.238470.3.227.99.6968.3644.0 Family Dependent Y [id number] [facility] [employer] (HMO) [id number] 74 2.16.840.1.918706.3.227.99.6968.3644.0 Family Dependent Y [id number] [facility] [employer] (HMO) [id number] 74 2.16.840.1.720771.3.227.99.6968.3644.0 Family Dependent Y [id number] [facility] [employer] (HMO) [id number] 74 2.16.840.1.579186.3.227.99.6968.3644.0 Family Dependent Y [id number] [facility] [employer] (HMO) [id number] 74 2.16.840.1.368131.3.227.99.6968.3644.0 Family Dependent Y [id number] [facility] [employer] (HMO) [id number] 74 2.16.840.1.196587.3.227.99.6968.3644.0 Family Dependent Y [id number] [facility] [employer] (HMO) [id number] 74 2.16.840.1.958368.3.227.99.6968.3644.0 Family Dependent Y [id number] [facility] [employer] (HMO) [id number] 74 2.16.840.1.004081.3.227.99.6968.3644.0 Family Dependent Y [id number] [facility] [employer] (HMO) [id number] 74 2.16.840.1.522847.3.227.99.6968.3644.0 Family Dependent Y [id number] [facility] [employer] (HMO) [id number] 74 2.16.840.1.482517.3.227.99.6968.3644.0 Family Dependent Y [id number] [facility] [employer] (HMO) [id number] 74 2.16.840.1.912421.3.227.99.6968.3644.0 Family Dependent Y [id number] [facility] [employer] (HMO) [id number] 74 2.16.840.1.649423.3.227.99.6968.3644.0 Family Dependent Y [id number] [facility] [employer] (HMO) [id number] 74 2.16.840.1.326970.3.227.99.6968.3644.0 Family Dependent Y [id number] [facility] [employer] (HMO) [id number] 74 2.16.840.1.703329.3.227.99.6968.3644.0 Family Dependent Y [id number] [facility] [employer] (HMO) [id number] 74 2.16.840.1.247824.3.227.99.6968.3644.0 Family Dependent Y [id number] [facility] [employer] (HMO) [id number] 74 2.16.840.1.864684.3.227.99.6968.3644.0 Family Dependent Y [id number] [facility] [employer] (HMO) [id number] 74 2.16.840.1.392549.3.227.99.6968.3644.0 Family Dependent Y [id number] [facility] [employer] (HMO) [id number] 74 2.16.840.1.618938.3.227.99.6968.3644.0 Family Dependent Y [id number] [facility] [employer] (HMO) [id number] 74 2.16.840.1.594198.3.227.99.6968.3644.0 Family Dependent Y [id number] [facility] [employer] (HMO) [id number] 74 2.16.840.1.693531.3.227.99.6968.3644.0 Family Dependent Y [id number] [facility] [employer] (HMO) [id number] 74 2.16.840.1.290718.3.227.99.6968.3644.0 Family Dependent Y [id number] [facility] [employer] (HMO) [id number] 74 2.16.840.1.752103.3.227.99.6968.3644.0 Family Dependent Y [id number] [facility] [employer] (HMO) [id number] 74 2.16.840.1.448266.3.227.99.6968.3644.0 Family Dependent Y [id number] [facility] [employer] (HMO) [id number] 74 2.16.840.1.722733.3.227.99.6968.3644.0 Family Dependent Y [id number] [facility] [employer] [facility] (HMO) [id number] 74 2.16.840.1.153563.3.227.99.6968.3644.0 Family Dependent Y [id number] [facility] [employer] (HMO) [id number] 74 2.16.840.1.202174.3.227.99.6968.3644.0 Family Dependent Y [id number] [facility] (HMO) [id number] 74 2.16.840.1.249470.3.227.99.6968.3644.0 Family Dependent Y [id number] [facility] (HMO) [id number] 74 2.16.840.1.282390.3.227.99.6968.3644.0 Family Dependent Y [id number] [facility] (HMO) [id number] 74 2.16.840.1.309434.3.227.99.6968.3644.0 Family Dependent Y [id number] [facility] (O) [id number] 74 2.16.840.1.326624.3.227.99.6968.3644.0 Family Dependent Y [id number] [facility] (O) [id number] 74 2.16.840.1.921692.3.227.99.6968.3644.0 Family Dependent Y [id number] [facility] (O) [id number] 74 2.16.840.1.160639.3.227.99.6968.3644.0 Family Dependent Y [id number] [facility] (O) [id number] 74 2.16.840.1.007246.3.227.99.6968.3644.0 Family Dependent Y [id number] [facility] (HMO) [id number] 74 2.16.840.1.882673.3.227.99.6968.3644.0 Family Dependent Y [id number] [facility] (HMO) [id number] 74 2.16.840.1.015814.3.227.99.6968.3644.0 Family Dependent Y [id number] [facility] (HMO) [id number] 74 2.16.840.1.017660.3.227.99.6968.3644.0 Family Dependent Y [id number] [facility] (HMO) [id number] 74 2.16.840.1.436715.3.227.99.6968.3644.0 Family Dependent Y [id number] [facility] (O) [id number] 74 2.16.840.1.817654.3.227.99.6968.3644.0 Family Dependent Y [id number] [facility] (HMO) [id number] 74 2.16.840.1.370079.3.227.99.6968.3644.0 Family Dependent Y [id number] [facility] (HMO) [id number] 74 2.16.840.1.486934.3.227.99.6968.3644.0 Family Dependent Y [id number] [facility] (HMO) [id number] 74 2.16.840.1.279149.3.227.99.6968.3644.0 Family Dependent Y [id number] [facility] (HMO) [id number] 74 2.16.840.1.091455.3.227.99.6968.3644.0 Family Dependent Y [id number] [facility] (HMO) [id number] 74 2.16.840.1.578830.3.227.99.6968.3644.0 Family Dependent Y [id number] [facility] (HMO) [id number] 74 2.16.840.1.986751.3.227.99.6968.3644.0 Family Dependent Y [id number] [facility] (HMO) [id number] 74 2.16.840.1.085735.3.227.99.6968.3644.0 Family Dependent Y [id number] [facility] (HMO) [id number] 74 2.16.840.1.840365.3.227.99.6968.3644.0 Family Dependent Y [id number] [facility] (HMO) [id number] 74 2.16.840.1.791696.3.227.99.6968.3644.0 Family Dependent Y [id number] [facility] (HMO) [id number] 74 2.16.840.1.444536.3.227.99.6968.3644.0 Family Dependent Y [id number] [facility] (HMO) [id number] 74 2.16.840.1.833987.3.227.99.6968.3644.0 Family Dependent Y [id number] [facility] (HMO) [id number] 74 2.16.840.1.763565.3.227.99.6968.3644.0 Family Dependent Y [id number] [facility] (HMO) [id number] 74 2.16.840.1.560646.3.227.99.6968.3644.0 Family Dependent Y [id number] [facility] (HMO) [id number] 74 2.16.840.1.891444.3.227.99.6968.3644.0 Family Dependent Y [id number] [facility] (HMO) [id number] 74 2.16.840.1.034268.3.227.99.6968.3644.0 Family Dependent Y [id number] [facility] (HMO) [id number] 74 2.16.840.1.999261.3.227.99.6968.3644.0 Family Dependent Y [id number] [facility] (HMO) [id number] 74 2.16.840.1.964307.3.227.99.6968.3644.0 Family Dependent Y [id number] [facility] (HMO) [id number] 74 2.16.840.1.806360.3.227.99.6968.3644.0 Family Dependent Y [id number] [facility] (HMO) [id number] 74 2.16.840.1.162839.3.227.99.6968.3644.0 Family Dependent Y [id number] [facility] (HMO) [id number] 74 2.16.840.1.450322.3.227.99.6968.3644.0 Family Dependent Y [id number] [facility] (HMO) [id number] 74 2.16.840.1.439153.3.227.99.6968.3644.0 Family Dependent Y [id number] [facility] (HMO) [id number] 74 2.16.840.1.098485.3.227.99.6968.3644.0 Family Dependent Y [id number] [facility] (HMO) [id number] 74 2.16.840.1.398034.3.227.99.6968.3644.0 Family Dependent Y [id number] [facility] (HMO) [id number] 74 2.16.840.1.257388.3.227.99.6968.3644.0 Family Dependent Y [id number] [facility] (HMO) [id number] 74 2.16.840.1.882871.3.227.99.6968.3644.0 Family Dependent Y [id number] [facility] (HMO) [id number] 74 2.16.840.1.510533.3.227.99.6968.3644.0 Family Dependent Y [id number] [facility] (HMO) [id number] 74 2.16.840.1.814071.3.227.99.6968.3644.0 Family Dependent Y [id number] [facility] (HMO) [id number] 74 2.16.840.1.416903.3.227.99.6968.3644.0 Family Dependent Y [id number] [facility] (HMO) [id number] 74 2.16.840.1.792143.3.227.99.6968.3644.0 Family Dependent Y [id number] [facility] (HMO) [id number] 74 2.16.840.1.220686.3.227.99.6968.3644.0 Family Dependent Y [id number] [facility] (HMO) [id number] 74 2.16.840.1.496569.3.227.99.6968.3644.0 Family Dependent Y [id number] [facility] (HMO) [id number] 74 2.16.840.1.064514.3.227.99.6968.3644.0 Family Dependent Y [id number] [facility] (HMO) [id number] 74 2.16.840.1.501244.3.227.99.6968.3644.0 Family Dependent Y [id number] [facility] (HMO) [id number] 74 2.16.840.1.982249.3.227.99.6968.3644.0 Family Dependent Y [id number] [facility] (HMO) [id number] 74 2.16.840.1.170943.3.227.99.6968.3644.0 Family Dependent Y [id number] [facility] (HMO) [id number] 74 2.16.840.1.558308.3.227.99.6968.3644.0 Family Dependent Y [id number] [facility] (HMO) [id number] 74 2.16.840.1.466796.3.227.99.6968.3644.0 Family Dependent Y [id number] [facility] (HMO) [id number] 74 2.16.840.1.908371.3.227.99.6968.3644.0 Family Dependent Y [id number] [facility] (HMO) [id number] 74 2.16.840.1.758362.3.227.99.6968.3644.0 Family Dependent Y [id number] [facility] (HMO) [id number] 74 2.16.840.1.461511.3.227.99.6968.3644.0 Family Dependent Y [id number] [facility] (O) [id number] 74 2.16.840.1.188274.3.227.99.6968.3644.0 Family Dependent Y [id number] [facility] (O) [id number] 74 2.16.840.1.885906.3.227.99.6968.3644.0 Family Dependent Y [id number] [facility] (HMO) [id number] 74 2.16.840.1.490844.3.227.99.6968.3644.0 Family Dependent Y [id number] [facility] (O) [id number] 74 2.16.840.1.810181.3.227.99.6968.3644.0 Family Dependent Y [id number] [facility] (HMO) [id number] 74 2.16.840.1.776775.3.227.99.6968.3644.0 Family Dependent Y [id number] [facility] (HMO) [id number] 74 2.16.840.1.696011.3.227.99.6968.3644.0 Family Dependent Y [id number] [facility] (HMO) [id number] 74 2.16.840.1.747252.3.227.99.6968.3644.0 Family Dependent Y [id number] [facility] (HMO) [id number] 74 2.16.840.1.682538.3.227.99.6968.3644.0 Family Dependent Y [id number] [facility] (HMO) [id number] 74 2.16.840.1.551396.3.227.99.6968.3644.0 Family Dependent Y [id number] [facility] (HMO) [id number] 74 2.16.840.1.309130.3.227.99.6968.3644.0 Family Dependent Y [id number] [facility] (HMO) [id number] 74 2.16.840.1.098080.3.227.99.6968.3644.0 Family Dependent Y [id number] [facility] (HMO) [id number] 74 2.16.840.1.412934.3.227.99.6968.3644.0 Family Dependent Y [id number] [facility] (H[facility]) [id number] 74 2.16.840.1.705569.3.227.99.6968.3644.0 Family Dependent Y [id number] [facility] (H[facility]) [id number] 74 2.16.840.1.694527.3.227.99.6968.3644.0 Family Dependent Y [id number] [facility] (H[facility]) [id number] 74 2.16.840.1.873291.3.227.99.6968.3644.0 Family Dependent Y [id number] [facility] (H[facility]) [id number] 74 2.16.840.1.747151.3.227.99.6968.3644.0 Family Dependent Y [id number] [facility] (HMO) [id number] 74 2.16.840.1.090051.3.227.99.6968.3644.0 Family Dependent Y [id number] [facility] (H[facility]) [id number] 74 2.16.840.1.492159.3.227.99.6968.3644.0 Family Dependent Y [id number] [facility] (HMO) [id number] 74 2.16.840.1.108305.3.227.99.6968.3644.0 Family Dependent Y [id number] [facility] (HMO) [id number] 74 2.16.840.1.399817.3.227.99.6968.3644.0 Family Dependent Y [id number] [facility] (HMO) [id number] 74 2.16.840.1.146156.3.227.99.6968.3644.0 Family Dependent Y [id number] [facility] (HMO) [id number] 74 2.16.840.1.397751.3.227.99.6968.3644.0 Family Dependent Y [id number] [facility] (HMO) [id number] 74 2.16.840.1.177155.3.227.99.6968.3644.0 Family Dependent Y [id number] [facility] (HMO) [id number] 74 2.16.840.1.464636.3.227.99.6968.3644.0 Family Dependent Y [id number] [facility] (HMO) [id number] 74 2.16.840.1.920129.3.227.99.6968.3644.0 Family Dependent Y [id number] [facility] (H[facility]) [id number] 74 2.16.840.1.684260.3.227.99.6968.3644.0 Family Dependent Y [id number] [facility] Health Maintenance Organization (HMO) [id number] 74 2.16.840.1.179935.3.227.99.6968.3644.0 Family Dependent Y [id number] [facility] [employer] (HMO) [id number] 74 2.16.840.1.917201.3.227.99.6968.3644.0 Family Dependent Y [id number] [facility] [employer] (HMO) [id number] 74 2.16.840.1.000087.3.227.99.6968.3644.0 Family Dependent Y [id number] [facility] [employer] (HMO) [id number] 74 2.16.840.1.885748.3.227.99.6968.3644.0 Family Dependent Y [id number] [facility] [employer] (HMO) [id number] 74 2.16.840.1.256912.3.227.99.6968.3644.0 Family Dependent Y [id number] [facility] [employer] (HMO) [id number] 74 2.16.840.1.649820.3.227.99.6968.3644.0 Family Dependent Y [id number] [facility] [employer] (HMO) [id number] 74 2.16.840.1.496073.3.227.99.6968.3644.0 Family Dependent Y [id number] [facility] [employer] (HMO) [id number] 74 2.16.840.1.999753.3.227.99.6968.3644.0 Family Dependent Y [id number] [facility] [employer] (HMO) [id number] 74 2.16.840.1.453818.3.227.99.6968.3644.0 Family Dependent Y [id number] [facility] [employer] (HMO) [id number] 74 2.16.840.1.785862.3.227.99.6968.3644.0 Family Dependent Y [id number] [facility] [employer] (HMO) [id number] 74 2.16.840.1.642194.3.227.99.6968.3644.0 Family Dependent Y [id number] [facility] [employer] (HMO) [id number] 74 2.16.840.1.062259.3.227.99.6968.3644.0 Family Dependent Y [id number] [facility] [employer] (HMO) [id number] 74 2.16.840.1.421885.3.227.99.6968.3644.0 Family Dependent Y [id number] [facility] [employer] (HMO) [id number] 74 2.16.840.1.922743.3.227.99.6968.3644.0 Family Dependent Y [id number] [facility] [employer] (HMO) [id number] 74 2.16.840.1.427775.3.227.99.6968.3644.0 Family Dependent Y [id number] [facility] [employer] (HMO) [id number] 74 2.16.840.1.799632.3.227.99.6968.3644.0 Family Dependent Y [id number] [facility] [employer] (HMO) [id number] 74 2.16.840.1.581328.3.227.99.6968.3644.0 Family Dependent Y [id number] [facility] [employer] (HMO) [id number] 74 2.16.840.1.415112.3.227.99.6968.3644.0 Family Dependent Y [id number] [facility] [employer] (HMO) [id number] 74 2.16.840.1.699751.3.227.99.6968.3644.0 Family Dependent Y [id number] [facility] [employer] (HMO) [id number] 74 2.16.840.1.571721.3.227.99.6968.3644.0 Family Dependent Y [id number] [facility] [employer] (HMO) [id number] 74 2.16.840.1.528789.3.227.99.6968.3644.0 Family Dependent Y [id number] [facility] [employer] (HMO) [id number] 74 2.16.840.1.243407.3.227.99.6968.3644.0 Family Dependent Y [id number] [facility] [employer] (HMO) [id number] 74 2.16.840.1.204565.3.227.99.6968.3644.0 Family Dependent Y [id number] [facility] [employer] [facility] (O) [id number] 74 2.16.840.1.386426.3.227.99.6968.3644.0 Family Dependent Y [id number] [facility] [employer] [facility] (O) [id number] 74 2.16.840.1.480629.3.227.99.6968.3644.0 Family Dependent Y [id number] [facility] (O) [id number] 74 2.16.840.1.703478.3.227.99.6968.3644.0 Family Dependent Y [id number] [facility] [id number] 74 2.16.840.1.375486.3.227.99.6968.3644.0 Family Dependent Y [id number] [facility] [id number] 74 2.16.840.1.613427.3.227.99.6968.3644.0 Family Dependent Y [id number] [facility]) [id number] 74 2.16.840.1.799178.3.227.99.6968.3644.0 Family Dependent Y [id number] [facility] [id number] 74 2.16.840.1.959990.3.227.99.6968.3644.0 Family Dependent Y [id number] [facility]) [id number] 74 2.16.840.1.305062.3.227.99.6968.3644.0 Family Dependent Y [id number] [facility]) [id number] 74 2.16.840.1.811807.3.227.99.6968.3644.0 Family Dependent Y [id number] [facility] [employer] (HMO) [id number] 74 2.16.840.1.271276.3.227.99.6968.3644.0 Family Dependent Y [id number] [facility] [employer] (HMO) [id number] 74 2.16.840.1.551328.3.227.99.6968.3644.0 Family Dependent Y [id number] [facility] [employer] (HMO) [id number] 74 2.16.840.1.067693.3.227.99.6968.3644.0 Family Dependent Y [id number] [facility] [employer] (HMO) [id number] 74 2.16.840.1.986210.3.227.99.6968.3644.0 Family Dependent Y [id number] [facility] [employer] (HMO) [id number] 74 2.16.840.1.203735.3.227.99.6968.3644.0 Family Dependent Y [id number] [facility] [employer] (HMO) [id number] 74 2.16.840.1.133828.3.227.99.6968.3644.0 Family Dependent Y [id number] [facility] [employer] (HMO) [id number] 74 2.16.840.1.611146.3.227.99.6968.3644.0 Family Dependent Y [id number] [facility] [employer] (HMO) [id number] 74 2.16.840.1.740033.3.227.99.6968.3644.0 Family Dependent Y [id number] [facility] (HMO) [id number] 74 2.16.840.1.517054.3.227.99.6968.3644.0 Family Dependent Y [id number] [facility] (HMO) [id number] 74 2.16.840.1.896341.3.227.99.6968.3644.0 Family Dependent Y [id number] [facility] [employer] (HMO) [id number] 74 2.16.840.1.772709.3.227.99.6968.3644.0 Family Dependent Y [id number] [facility] (HMO) [id number] 74 2.16.840.1.857642.3.227.99.6968.3644.0 Family Dependent Y [id number] [facility] [id number] CHILD [id number] [facility] [employer] [facility] (HMO) [id number] 74 2.16.840.1.431286.3.227.99.6968.3644.0 Family Dependent Y [id number] [facility] (HMO) [id number] Family Dependent [facility] [id number] CHILD [id number] [facility] [id number] SP [id number] [facility] [id number] S [id number] Managed Care [facility] Community Plan P [id number] S [id number] Medicaid S [id number] S [id number] [facility] COMMUNITY PLAN [facility] [id number] SP [id number] MEDICAID [id number] SP [id number] SELF PAY ONLY [id number] SP [id number] Problems, Conditions, and Diagnoses Code Display Name Description Problem Type Effective Dates Data Source(s) F32.9 Major depressive disorder, single episod e, unspecified MAJOR DEPRESSIVE DISORDER, SINGLE EPISODE, UNSPECIFIED Diagnosis 08/04/2020 10:00:00 AM [facility] Z72.0 Tobacco use Tobacco Use Disorder, Mild Condition 1 03/28/2020 12:00:00 AM EST [facility] ([facility]) F12.20 Cannabis dependence, uncomplicated Cannabis Use Disorder, Moderate Condition 01/26/2021 12:00:00 AM EST [facility] ([facility]) F43.9 Reaction to severe stress, unspecified U nspecified Trauma- and Stressor- Related Disorder Condition 01/26/2021 12:00:00 AM EST [facility] ([facility]) Surgeries/Procedures Procedure Description Date Indications Data Source(s) Extended Individual Psychotherapy - 45 min 01/26/2021 12:00:00 AM EST - 01/26/2021 12:00:00 AM EST [facility] ([facility]) Extended Individual Psychotherapy - 45 min 12:00:00 AM EST [facility] ([facility]) Psychiatric Diagnostic Evaluation (Non-Medical) 01/18/2021 12:00:00 AM EST - 01/18/2021 12:00:00 AM EST [facility] ([facility]) Psychiatric Diagnostic Evaluation (Non-Medical) 2020 12:00:00 AM EDT [facility] ([facility]) OFFICE OUTPATIENT VISIT 15 MINUTES 12/18/2020 12:00:00 AM EDT [facility] ([facility]) Extended Individual Psychotherapy - 45 min 11/23/2020 12:00:00 AM EDT - 11/23/2020 12:00:00 AM EDT [facility] ([facility]) Extended Individual Psychotherapy - 45 min 12:00:00 AM EDT [facility] ([facility]) Extended Individual Psychotherapy - 45 min 10/28/2020 12:00:00 AM EDT - 10/28/2020 12:00:00 AM EDT [facility] ([facility]) Extended Individual Psychotherapy - 45 min 12:00:00 AM EDT [facility] ([facility]) Results ID Date Data Source [id number] 12/30/2020 05:30:00 PM EDT [facility] Name Value Range Interpretation Code Description Data Monica rce(s) Supporting Document(s) SARS-CoV-2 RNA Resp Ql AMAYA+probe NOT DETECTED [facility] This lab was ordered by EBENEZER nieves and reported by EBENEZER Mata. ID Date Data Source [id number] 12/18/2020 06:14:00 PM EDT [facility] ([facility]) Name Value Range Interpretation Code Description Data Monica rce(s) Supporting Document(s) Chlamydia Dna Amplification [facility] A negative test result does not exclude the possibility of infection because test results may be affected by improper specimen collection, technical error, specimen mix-up, concurrent antibiotic therapy, or the number of organisms in the specimen which may be below the sensitivity of the test. GC Dna Amplification Laboratory test result [facility] ([facility]) A negative test result does not exclude the possibility of infection because test results may be affected by improper specimen collection, technical error, specimen mix-up, concurrent antibiotic therapy, or the number of organisms in the specimen which may be below the sensitivity of the test. Trichomonas vaginalis (Amp) Laboratory test result [facility] ([facility]) A negative test result does not exclude the possibility of infection because test results may be affected by improper specimen collection, technical error, sample mix-up, or because the number of organisms in the sample is below the limit of detection of the test. ID Date Data Source [id number] 12/18/2020 06:14:00 PM EDT [facility] ([facility]) Name Value Range Interpretation Code Description Data Monica rce(s) Supporting Document(s) Bacteria identified in Urine by Culture Laboratory test result [facility] ([facility]) FULL REPORT IN LAB NOTES ([facility] and [facility] ). NO GROWTH CLINICAL SIGNIFICANCE 1 ORGANISM ID Date Data Source [id number] 12/18/2020 12:00:00 AM EDT [facility] Name Value Range Interpretation Code Description Data Monica rce(s) Supporting Document(s) SARS-CoV2 Rapid Antigen Negative [facility] This lab was ordered by [facility] and reported by [facility]. Procedure Social History Code Duration Value Status Description Data Source(s ) Smoking 01/26/2021 12:00:00 AM EST Unknown if ever smoked comp leted Unknown if ever smoked [facility] ([facility]) Smoking 01/18/2021 12:00:00 AM EST Unknown if ever smoked comp leted Unknown if ever smoked [facility] ([facility]) Smoking 11/23/2020 12:00:00 AM EDT Unknown if ever smoked comp leted Unknown if ever smoked [facility] ([facility]) Smoking 10/28/2020 12:00:00 AM EDT Unknown if ever smoked comp leted Unknown if ever smoked [facility] ([facility]) Vital Signs ID Date Data Source UNK Name Value Range Interpretation Code Description Data Source(s) Systolic blood pressure 128 mm[Hg] 128 mm[Hg] [facility] Diastolic blood pressure 82 mm[Hg] 82 mm[Hg] [facility], [facility]) Heart rate 83 /min 83 /min [facility] ([facility], [facility]) Respiratory rate 14 /min 14 /min [facility] ( [facility], [facility]) Oxygen saturation in Arterial blood by Pulse oximetry 96 % 96 % [facility] ([facility], [facility]) Body temperature 97.1 [degF] 97.1 [degF] [facility] ([facility], [facility]) Body weight 236.00 [lb_av] 236.00 [lb_av] [facility] ([facility], [facility]) Body height 70 [in_i] 70 [in_i] [facility] ([facility]) 5'10" Body mass index (BMI) [Ratio] 33.9 kg/m2 33.9 k g/m2 [facility] ([facility]) Respiratory rate 16 /min 16 /min [facility] ( [facility], [facility]) Oxygen saturation in Arterial blood by Pulse oximetry 98 % 98 % [facility] ([facility], [facility]) Body temperature 98.9 [degF] 98.9 [degF] [facility] ([facility], [facility]) Body weight 250.00 [lb_av] 250.00 [lb_av] [facility] ([facility], [facility]) Body height 70 [in_i] 70 [in_i] [facility] 5'10" Body mass index (BMI) [Ratio] 35.9 kg/m2 35.9 k g/m2 [facility] ([facility], [facility]) Systolic blood pressure 147 mm[Hg] 147 mm[Hg] [facility] Diastolic blood pressure 94 mm[Hg] 94 mm[Hg] [facility] ([facility], [facility]) Heart rate 81 /min 81 /min [facility] ([facility], [facility])
[2021-02-06 01:44] VITALS: BP 158/68
--- OUTSIDE RECORDS SUMMARY | 2021-02-06 02:43 | CCD ---
Author Author [facility] Organization [facility] Address Unknown Phone Unavailable Care Team Providers Care Land Acquisition Specialist Name Role Phone JOEY, Jose JIM Unavailable Unavailable LETTIERE, Jose JIM Unavailable Unavailable LETTIERE, Jose JIM Unavailable Unavailable LETTIERE, Jose JIM Unavailable Unavailable LETTIERE, Jose THORNTON PA Unavailable Unavailable LETTIERE, Jose THORNTON PA Unavailable Unavailable LETTIERE, Jose THORNTON PA Unavailable Unavailable LETTIERE, Jose THORNTON PA Unavailable Unavailable LETTIERE, Jose THORNTON PA Unavailable Unavailable LETTIERE, Jose THORNTON PA Unavailable Unavailable LETTIERE, Jose THORNTON PA Unavailable Unavailable LETTIERE, Jose THORNTON PA Unavailable Unavailable LETTIERE, Jose THORNTON PA Unavailable Unavailable LETTIERE, Jose THORNTON PA Unavailable Unavailable LETTIERE, Jose THORNTON PA Unavailable Unavailable LETTIERE, Jose THORNTON PA Unavailable Unavailable LETTIERE, Jose THORNTON PA Unavailable Unavailable LETTIERE, Jose THORNTON PA Unavailable Unavailable LETTIERE, Jose THORNTON PA Unavailable Unavailable LETTIERE, Jose THORNTON PA Unavailable Unavailable LETTIERE, Jose THORNTON PA Unavailable Unavailable LETTIERE, Jose THORNTON PA Unavailable Unavailable LETTIERE, Jose THORNTON PA Unavailable Unavailable LETTIERE, A HILLARY PA Unavailable Unavailable LETTIERE, A HILLARY PA Unavailable Unavailable LETTIERE, A HILLARY PA Unavailable Unavailable LETTIERE, A HILLARY PA Unavailable Unavailable LETTIERE, A HILLARY PA Unavailable Unavailable LETTIERE, A HILLARY PA Unavailable Unavailable LETTIERE, A HILLARY PA Unavailable Unavailable LETTIERE, A HILLARY PA Unavailable Unavailable Jeri Mayberry Unavailable MARCOS, ABDI PA Unavailable Unavailable MARCOS, [...] ABDI PA Unavailable Unavailable Ramon Najera Unavailable [phone] Ramon Najera Unavailable [phone] Ramon Najera Unavailable [phone] Ramon Najera Unavailable [phone] Ramon Najera Unavailable [phone] Ramon Najera Unavailable [phone] Emma Marx Unavailable Unavailable Emma Marx Unavailable Unavailable Araseli, Emma Unavailable Unavailable Marivel Arzate Unavailable Marivel Arzate [...] is protected by Article 27-F of the [facility] Public Health law. If you continue you may have access to information: Regarding HIV / AIDS; Provided by facilities licensed or operated by the [facility] Office of Mental Health; or Provided by the [facility] Office for People With Developmental Disabilities. If such information is present, then the following [facility] mandated warning applies: This information has [...] law may result in a fine or care home sentence or both. A general authorization for the release of medical or other information is NOT sufficient authorization for further disc losure. Family History Family Member Name Family Member Gender Family Member Status Date o f Status Description Data Source(s) Unknown Female Problem [facility] ([facility]) Unknown Female Problem [facility] ([facility]) Encounters Encounter Providers Location Date Indications Data Source(s ) Attender: Marivel Huey 01/26/2021 12:00:00 AM [facility]ine[facility] Fox ([facility]) Extended Individual Psychotherapy - 45 min Attender: Christian Botello [facility] 01/25/2021 01:00:00 AM EST - 01/25/2021 01:00:00 AM EST [facility] ([facility]) Attender: Marivel Arzate 01/18/2021 12:00:[address] [facility] ([facility]) Psychiatric Diagnostic Evaluation (Non-Medical) Attender: Shelby humphreysjose Arzate [facility] 01/15/2021 10:30:00 AM EDT - 01/15/2021 10:30:00 AM EDT [facility] ([facility]) Outpatient Attender: Ramon Najera 12/30 05:21:07 PM EDT - 12/30/2020 06:42:33 PM EDT [facility] ([facility] ) Outpatient Attender: HILLARY driscoll 12/18/2020 05:25:00 PM EDT [facility] ([facility]) Extended Individual Psychotherapy - 45 min Attender: Christian Botello [facility] 11/23/2020 09:00:00 AM EDT - 11/23/2020 09:00:00 AM EDT [facility] ([facility]) Attender: Marivel Huey 11/23/2020 12:00:00 AM E DT [facility] ([facility]) Extended Individual Psychotherapy - 45 min Attender: Kelsey Mayberry [facility] 10/28/2020 11:45:00 AM EDT - 10/28/2020 11:45:00 AM EDT [facility] ([facility]) Attender: Jeri Mayberry 10/28/2020 12:00:00 AM EDT [facility] ([facility]) Outpatient Attender: Emma Marx 08/04/2020 10:00:00 AM [facility] Outpatient Attender: ABDI edwards 02/28/2020 07:15:00 AM EST [facility] ([facility]) Immunizations Vaccine Date Status Description Data Source(s) COVID-19 VACCINE Moderna 08/25/2020 12:00:00 AM EDT completed [facility] Vaccine Series Complete: NOThis Data was Submitted to [facility]. COVID-19 VACCINE Moderna 07/28/2020 12:00:00 AM EDT completed [facility] Vaccine Series Complete: YESThis Data wa s Submitted to [facility]. Medications Medication Brand Name Start Date Product Form Dose Route Admi nistrative Instructions Pharmacy Instructions Status Indications Reaction Description Data Source(s) Naproxen 500 MG Oral Tablet Naproxen 02/28/2020 12:00:00 AM EST ORAL active [facility] ([facility]) No Active Medications 02/28/2020 12:00:00 AM EST completed [facility] ([facility]) Insurance Providers Payer name Policy type / Coverage type Policy ID Covered alliance party ID Covered alliance party's relationship to hodge Policy Hodge Plan Information 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 [id number] Self [id number] [facility] Health Maintenance Organization (O) [id number] 74 2.840.1.428604.3.227.99.6968.3644.0 Family Dependent Y [id number] [facility] Health Maintenance Organization (HMO) [id number] 74 2.840.1.427094.3.227.99.6968.3644.0 Family Dependent Y [id number] [facility] Maintenance [facility] (O) [id number] 74 2.16.840.1.652041.3.227.99.6968.3644.0 Family Dependent Y [id number] [facility] (HMO) [id number] 74 2.16.840.1.476597.3.227.99.6968.3644.0 Family Dependent Y [id number] [facility] Maintenance Organization (O) [id number] 74 2.16.840.1.614605.3.227.99.6968.3644.0 Family Dependent Y [id number] [facility] Health Maintenance Organization (O) [id number] 74 2.16.840.1.465463.3.227.99.6968.3644.0 Family Dependent Y [id number] [facility] Health Maintenance Organization (O) [id number] 74 2.16.840.1.326504.3.227.99.6968.3644.0 Family Dependent Y [id number] [facility] Health Maintenance Organization (O) [id number] 74 2.16.840.1.444112.3.227.99.6968.3644.0 Family Dependent Y [id number] [facility] (HMO) [id number] 74 2.16.840.1.088595.3.227.99.6968.3644.0 Family Dependent Y [id number] [facility] Organization (HMO) [id number] 74 2.16.840.1.745456.3.227.99.6968.3644.0 Family Dependent Y [id number] [facility] Health Maintenance Organization (O) [id number] 74 2.16.840.1.655800.3.227.99.6968.3644.0 Family Dependent Y [id number] [facility] Health Maintenance Organization (HMO) [id number] 74 2.16.840.1.057358.3.227.99.6968.3644.0 Family Dependent Y [id number] [facility] (HMO) [id number] 74 2.16.840.1.823045.3.227.99.6968.3644.0 Family Dependent Y [id number] [facility] (HMO) [id number] 74 2.16.840.1.966588.3.227.99.6968.3644.0 Family Dependent Y [id number] [facility] (HMO) [id number] 74 2.16.840.1.445723.3.227.99.6968.3644.0 Family Dependent Y [id number] [facility] (HMO) [id number] 74 2.16.840.1.009428.3.227.99.6968.3644.0 Family Dependent Y [id number] [facility] (HMO) [id number] 74 2.16.840.1.577699.3.227.99.6968.3644.0 Family Dependent Y [id number] [facility] (HMO) [id number] 74 2.16.840.1.922845.3.227.99.6968.3644.0 Family Dependent Y [id number] [facility] (HMO) [id number] 74 2.16.840.1.433774.3.227.99.6968.3644.0 Family Dependent Y [id number] [facility] (HMO) [id number] 74 2.16.840.1.165858.3.227.99.6968.3644.0 Family Dependent Y [id number] [facility] (HMO) [id number] 74 2.16.840.1.564431.3.227.99.6968.3644.0 Family Dependent Y [id number] [facility] (HMO) [id number] 74 2.16.840.1.121681.3.227.99.6968.3644.0 Family Dependent Y [id number] [facility] (HMO) [id number] 74 2.16.840.1.266446.3.227.99.6968.3644.0 Family Dependent Y [id number] [facility] (HMO) [id number] 74 2.16.840.1.607853.3.227.99.6968.3644.0 Family Dependent Y [id number] [facility] (HMO) [id number] 74 2.16.840.1.540460.3.227.99.6968.3644.0 Family Dependent Y [id number] [facility] (HMO) [id number] 74 2.16.840.1.401686.3.227.99.6968.3644.0 Family Dependent Y [id number] [facility] (HMO) [id number] 74 2.16.840.1.343231.3.227.99.6968.3644.0 Family Dependent Y [id number] [facility] (HMO) [id number] 74 2.16.840.1.623361.3.227.99.6968.3644.0 Family Dependent Y [id number] [facility] (HMO) [id number] 74 2.16.840.1.721138.3.227.99.6968.3644.0 Family Dependent Y [id number] [facility] (HMO) [id number] 74 2.16.840.1.876940.3.227.99.6968.3644.0 Family Dependent Y [id number] [facility] (HMO) [id number] 74 2.16.840.1.817162.3.227.99.6968.3644.0 Family Dependent Y [id number] [facility] (HMO) [id number] 74 2.16.840.1.755450.3.227.99.6968.3644.0 Family Dependent Y [id number] [facility] (HMO) [id number] 74 2.16.840.1.243570.3.227.99.6968.3644.0 Family Dependent Y [id number] [facility] (HMO) [id number] 74 2.16.840.1.073269.3.227.99.6968.3644.0 Family Dependent Y [id number] [facility] (HMO) [id number] 74 2.16.840.1.389857.3.227.99.6968.3644.0 Family Dependent Y [id number] [facility] (HMO) [id number] 74 2.16.840.1.341649.3.227.99.6968.3644.0 Family Dependent Y [id number] [facility] (HMO) [id number] 74 2.16.840.1.669210.3.227.99.6968.3644.0 Family Dependent Y [id number] [facility] (HMO) [id number] 74 2.16.840.1.877442.3.227.99.6968.3644.0 Family Dependent Y [id number] [facility] (HMO) [id number] 74 2.16.840.1.742804.3.227.99.6968.3644.0 Family Dependent Y [id number] [facility] (HMO) [id number] 74 2.16.840.1.876671.3.227.99.6968.3644.0 Family Dependent Y [id number] [facility] (HMO) [id number] 74 2.16.840.1.600696.3.227.99.6968.3644.0 Family Dependent Y [id number] [facility] (HMO) [id number] 74 2.16.840.1.176795.3.227.99.6968.3644.0 Family Dependent Y [id number] [facility] (O) [id number] 74 2.16.840.1.879521.3.227.99.6968.3644.0 Family Dependent Y [id number] [facility] (O) [id number] 74 2.16.840.1.941887.3.227.99.6968.3644.0 Family Dependent Y [id number] [facility] (O) [id number] 74 2.16.840.1.170977.3.227.99.6968.3644.0 Family Dependent Y [id number] [facility] (HMO) [id number] 74 2.16.840.1.018028.3.227.99.6968.3644.0 Family Dependent Y [id number] [facility] (HMO) [id number] 74 2.16.840.1.442815.3.227.99.6968.3644.0 Family Dependent Y [id number] [facility] (HMO) [id number] 74 2.16.840.1.060904.3.227.99.6968.3644.0 Family Dependent Y [id number] [facility] Organization (HMO) [id number] 74 2.16.840.1.314333.3.227.99.6968.3644.0 Family Dependent Y [id number] [facility] (HMO) [id number] 74 2.16.840.1.240734.3.227.99.6968.3644.0 Family Dependent Y [id number] [facility] (HMO) [id number] 74 2.16.840.1.010484.3.227.99.6968.3644.0 Family Dependent Y [id number] [facility] (O) [id number] 74 2.16.840.1.924679.3.227.99.6968.3644.0 Family Dependent Y [id number] [facility] (O) [id number] 74 2.16.840.1.907907.3.227.99.6968.3644.0 Family Dependent Y [id number] [facility] (O) [id number] 74 2.16.840.1.086237.3.227.99.6968.3644.0 Family Dependent Y [id number] [facility] (O) [id number] 74 2.16.840.1.235810.3.227.99.6968.3644.0 Family Dependent Y [id number] [facility] Organization (O) [id number] 74 2.16.840.1.277862.3.227.99.6968.3644.0 Family Dependent Y [id number] [facility] (O) [id number] 74 2.16.840.1.774460.3.227.99.6968.3644.0 Family Dependent Y [id number] [facility] Organization (HMO) [id number] 74 2.16.840.1.420322.3.227.99.6968.3644.0 Family Dependent Y [id number] [facility] Organization (HMO) [id number] 74 2.16.840.1.734519.3.227.99.6968.3644.0 Family Dependent Y [id number] [facility] Health Maintenance Organization (O) [id number] 74 2.16.840.1.360663.3.227.99.6968.3644.0 Family Dependent Y [id number] [facility] (HMO) [id number] 74 2.16.840.1.046200.3.227.99.6968.3644.0 Family Dependent Y [id number] [facility] (HMO) [id number] 74 2.16.840.1.113569.3.227.99.6968.3644.0 Family Dependent Y [id number] [facility] (HMO) [id number] 74 2.16.840.1.843584.3.227.99.6968.3644.0 Family Dependent Y [id number] [facility] (HMO) [id number] 74 2.16.840.1.672610.3.227.99.6968.3644.0 Family Dependent Y [id number] [facility] (HMO) [id number] 74 2.16.840.1.344913.3.227.99.6968.3644.0 Family Dependent Y [id number] [facility] (HMO) [id number] 74 2.16.840.1.524708.3.227.99.6968.3644.0 Family Dependent Y [id number] [facility] (HMO) [id number] 74 2.16.840.1.425975.3.227.99.6968.3644.0 Family Dependent Y [id number] [facility] (HMO) [id number] 74 2.16.840.1.274787.3.227.99.6968.3644.0 Family Dependent Y [id number] [facility] (HMO) [id number] 74 2.16.840.1.119762.3.227.99.6968.3644.0 Family Dependent Y [id number] [facility] (HMO) [id number] 74 2.16.840.1.584200.3.227.99.6968.3644.0 Family Dependent Y [id number] [facility] (HMO) [id number] 74 2.16.840.1.063615.3.227.99.6968.3644.0 Family Dependent Y [id number] [facility] (HMO) [id number] 74 2.16.840.1.321144.3.227.99.6968.3644.0 Family Dependent Y [id number] [facility] (HMO) [id number] 74 2.16.840.1.064658.3.227.99.6968.3644.0 Family Dependent Y [id number] [facility] (HMO) [id number] 74 2.16.840.1.557864.3.227.99.6968.3644.0 Family Dependent Y [id number] [facility] (HMO) [id number] 74 2.16.840.1.525763.3.227.99.6968.3644.0 Family Dependent Y [id number] [facility] (HMO) [id number] 74 2.16.840.1.234743.3.227.99.6968.3644.0 Family Dependent Y [id number] [facility] (HMO) [id number] 74 2.16.840.1.333089.3.227.99.6968.3644.0 Family Dependent Y [id number] [facility] (HMO) [id number] 74 2.16.840.1.498136.3.227.99.6968.3644.0 Family Dependent Y [id number] [facility] (HMO) [id number] 74 2.16.840.1.011014.3.227.99.6968.3644.0 Family Dependent Y [id number] [facility] (HMO) [id number] 74 2.16.840.1.583707.3.227.99.6968.3644.0 Family Dependent Y [id number] [facility] (HMO) [id number] 74 2.16.840.1.591049.3.227.99.6968.3644.0 Family Dependent Y [id number] [facility] (HMO) [id number] 74 2.16.840.1.865786.3.227.99.6968.3644.0 Family Dependent Y [id number] [facility] (HMO) [id number] 74 2.16.840.1.827680.3.227.99.6968.3644.0 Family Dependent Y [id number] [facility] (HMO) [id number] 74 2.16.840.1.752879.3.227.99.6968.3644.0 Family Dependent Y [id number] [facility] (HMO) [id number] 74 2.16.840.1.925212.3.227.99.6968.3644.0 Family Dependent Y [id number] [facility] (HMO) [id number] 74 2.16.840.1.474784.3.227.99.6968.3644.0 Family Dependent Y [id number] [facility] (HMO) [id number] 74 2.16.840.1.633669.3.227.99.6968.3644.0 Family Dependent Y [id number] [facility] (HMO) [id number] 74 2.16.840.1.703889.3.227.99.6968.3644.0 Family Dependent Y [id number] [facility] (HMO) [id number] 74 2.16.840.1.947950.3.227.99.6968.3644.0 Family Dependent Y [id number] [facility] (HMO) [id number] 74 2.16.840.1.278082.3.227.99.6968.3644.0 Family Dependent Y [id number] [facility] (HMO) [id number] 74 2.16.840.1.076205.3.227.99.6968.3644.0 Family Dependent Y [id number] [facility] (O) [id number] 74 2.16.840.1.511271.3.227.99.6968.3644.0 Family Dependent Y [id number] [facility] (O) [id number] 74 2.16.840.1.583721.3.227.99.6968.3644.0 Family Dependent Y [id number] [facility] (O) [id number] 74 2.16.840.1.647612.3.227.99.6968.3644.0 Family Dependent Y [id number] [facility] (O) [id number] 74 2.16.840.1.350451.3.227.99.6968.3644.0 Family Dependent Y [id number] [facility] (HMO) [id number] 74 2.16.840.1.993666.3.227.99.6968.3644.0 Family Dependent Y [id number] [facility] (HMO) [id number] 74 2.16.840.1.881564.3.227.99.6968.3644.0 Family Dependent Y [id number] [facility] (HMO) [id number] 74 2.16.840.1.629105.3.227.99.6968.3644.0 Family Dependent Y [id number] [facility] (HMO) [id number] 74 2.16.840.1.881209.3.227.99.6968.3644.0 Family Dependent Y [id number] [facility] (HMO) [id number] 74 2.16.840.1.989314.3.227.99.6968.3644.0 Family Dependent Y [id number] [facility] (O) [id number] 74 2.16.840.1.464814.3.227.99.6968.3644.0 Family Dependent Y [id number] [facility] (HMO) [id number] 74 2.16.840.1.378663.3.227.99.6968.3644.0 Family Dependent Y [id number] [facility] (HMO) [id number] 74 2.16.840.1.213855.3.227.99.6968.3644.0 Family Dependent Y [id number] [facility] (O) [id number] 74 2.16.840.1.110991.3.227.99.6968.3644.0 Family Dependent Y [id number] [facility] (HMO) [id number] 74 2.16.840.1.486316.3.227.99.6968.3644.0 Family Dependent Y [id number] [facility] (HMO) [id number] 74 2.16.840.1.416118.3.227.99.6968.3644.0 Family Dependent Y [id number] [facility] (HMO) [id number] 74 2.16.840.1.430332.3.227.99.6968.3644.0 Family Dependent Y [id number] [facility] (HMO) [id number] 74 2.16.840.1.225238.3.227.99.6968.3644.0 Family Dependent Y [id number] [facility] (HMO) [id number] 74 2.16.840.1.522784.3.227.99.6968.3644.0 Family Dependent Y [id number] [facility] (HMO) [id number] 74 2.16.840.1.075975.3.227.99.6968.3644.0 Family Dependent Y [id number] [facility] (HMO) [id number] 74 2.16.840.1.620421.3.227.99.6968.3644.0 Family Dependent Y [id number] [facility] (HMO) [id number] 74 2.16.840.1.766321.3.227.99.6968.3644.0 Family Dependent Y [id number] [facility] (HMO) [id number] 74 2.16.840.1.759013.3.227.99.6968.3644.0 Family Dependent Y [id number] [facility] (HMO) [id number] 74 2.16.840.1.474042.3.227.99.6968.3644.0 Family Dependent Y [id number] [facility] (HMO) [id number] 74 2.16.840.1.123457.3.227.99.6968.3644.0 Family Dependent Y [id number] [facility] (HMO) [id number] 74 2.16.840.1.108999.3.227.99.6968.3644.0 Family Dependent Y [id number] [facility] (HMO) [id number] 74 2.16.840.1.587047.3.227.99.6968.3644.0 Family Dependent Y [id number] [facility] (HMO) [id number] 74 2.16.840.1.719241.3.227.99.6968.3644.0 Family Dependent Y [id number] [facility] (HMO) [id number] 74 2.16.840.1.560912.3.227.99.6968.3644.0 Family Dependent Y [id number] [facility] (HMO) [id number] 74 2.16.840.1.740844.3.227.99.6968.3644.0 Family Dependent Y [id number] [facility] (HMO) [id number] 74 2.16.840.1.343190.3.227.99.6968.3644.0 Family Dependent Y [id number] [facility] (HMO) [id number] 74 2.16.840.1.359771.3.227.99.6968.3644.0 Family Dependent Y [id number] [facility] (HMO) [id number] 74 [id number] Family Dependent Y [id number] [employer] ([employer]) [id number] 74 [id number] Family Dependent Y [id number] [employer] ([employer]) [id number] Family Dependent Y [id number] [employer] (H[employer]) [id number] Family Dependent Y [id number] [facility] [id number] 74 [id number] Family Dependent Y [id number] [facility] [employer] (HMO) [id number] 74 [id number]9.6968.3644.0 Family Dependent Y [id number] [facility] [employer] (H[employer]) [id number] 74 [id number]9.6968.3644.0 Family Dependent Y [id number] [facility] [employer] (HMO) [id number] 74 [id number]9.6968.3644.0 Family Dependent Y [id number] [facility] [employer] (HMO) [id number] 74 [id number]9.6968.3644.0 Family Dependent Y [id number] [facility] [employer] (H[employer]) [id number] 74 [id number]9.6968.3644.0 Family Dependent Y [id number] [facility] [employer] (H[employer]) [id number] 74 [id number]9.6968.3644.0 Family Dependent Y [id number] [facility] [employer] (H[employer]) [id number] 74 [id number]9.6968.3644.0 Family Dependent Y [id number] [facility] [employer] (H[employer]) [id number] 74 [id number]9.6968.3644.0 Family Dependent Y [id number] [facility] [employer] (H[employer]) [id number] 74 2.16.840.1.548330.3.227.99.6968.3644.0 Family Dependent Y [id number] [facility] [employer] (H[employer]) [id number] 74 2.16.840.1.137745.3.227.99.6968.3644.0 Family Dependent Y [id number] [facility] [employer] (H[employer]) [id number] 74 2.16.840.1.298232.3.227.99.6968.3644.0 Family Dependent Y [id number] [facility] [employer] (H[employer]) [id number] 74 2.16.840.1.752136.3.227.99.6968.3644.0 Family Dependent Y [id number] [facility] [employer] (H[employer]) [id number] 74 [id number]9.6968.3644.0 Family Dependent Y [id number] [facility] [employer] (H[employer]) [id number] 74 [id number]9.6968.3644.0 Family Dependent Y [id number] [facility] [employer] (H[employer]) [id number] 74 [id number]9.6968.3644.0 Family Dependent Y [id number] [facility] [employer] (HMO) [id number] 74 2.16.840.1.574743.3.227.99.6968.3644.0 Family Dependent Y [id number] [facility] [employer] (HMO) [id number] 74 2.16.840.1.415945.3.227.99.6968.3644.0 Family Dependent Y [id number] [facility] [employer] (HMO) [id number] 74 2.16.840.1.688240.3.227.99.6968.3644.0 Family Dependent Y [id number] [facility] [employer] (H[employer]) [id number] 74 2.16.840.1.586873.3.227.99.6968.3644.0 Family Dependent Y [id number] [facility] [employer] (H[employer]) [id number] 74 2.16.840.1.892689.3.227.99.6968.3644.0 Family Dependent Y [id number] [facility] [employer] (H[employer]) [id number] 74 2.16.840.1.274096.3.227.99.6968.3644.0 Family Dependent Y [id number] [facility] [employer] (HMO) [id number] 74 2.16.840.1.829704.3.227.99.6968.3644.0 Family Dependent Y [id number] [facility] [employer] (HMO) [id number] 74 [id number]9.6968.3644.0 Family Dependent Y [id number] [facility] Health Maintenance Organization (HMO) [id number] 74 [id number]9.6968.3644.0 Family Dependent Y [id number] [facility] Health Maintenance Organization (HMO) [id number] 74 [id number] Family Dependent Y [id number] [facility] [place] [id number] CHILD [id number] [facility] Health Maintenance Organization (HMO) [id number] 74 [id number] Family Dependent Y [id number] [facility] Health Maintenance Organization (HMO) [id number] Family Dependent [facility] [place] [id number] CHILD [id number] [facility] [id number] SP [id number] [facility] [id number] S [id number] Managed Care - [facility] Community Plan P [id number] S [id number] Medicaid S [id number] S [id number] [employer] MCDO [id number] SP [id number] MEDICAID [id number] SP [id number] SELF PAY ONLY [id number] SP [id number] Problems, Conditions, and Diagnoses Code Display Name Description Problem Type Effective Dates Data Source(s) F32.9 Major depressive disorder, single episod e, unspecified MAJOR DEPRESSIVE DISORDER, SINGLE EPISODE, UNSPECIFIED Diagnosis 08/04/2020 10:00:00 AM [facility] Z72.0 Tobacco use Tobacco Use Disorder, Mild Condition 1 03/28/2020 12:00:00 AM EST [facility] ([facility]) F12.20 Cannabis dependence, uncomplicated Cannabis Use Disorder, Moderate Condition 01/26/2021 12:00:00 AM EST [facility] ([facility]) F43.9 Reaction to severe stress, unspecified U nspecified Trauma- and Stressor- Related Disorder Condition 01/26/2021 12:00:00 AM EST [facility] ( [facility]) Surgeries/Procedures Procedure Description Date Indications Data Source(s) Extended Individual Psychotherapy - 45 min 01/26/2021 12:00:00 AM EST - 01/26/2021 12:00:00 AM EST [facility] ([facility]) Extended Individual Psychotherapy - 45 min 12:00:00 AM EST [facility] ([facility]) Psychiatric Diagnostic Evaluation (Non-Medical) 01/18/2021 12:00:00 AM EST - 01/18/2021 12:00:00 AM EST [facility] ([facility]) Psychiatric Diagnostic Evaluation (Non-Medical) 2020 12:00:00 AM EDT [facility] ([facility]) OFFICE OUTPATIENT VISIT 15 MINUTES 12/18/2020 12:00:00 AM EDT [facility] ([facility], [facility]) Extended Individual Psychotherapy - 45 min 11/23/2020 12:00:00 AM EDT - 11/23/2020 12:00:00 AM EDT [facility] ([facility]) Extended Individual Psychotherapy - 45 min 12:00:00 AM EDT [facility] ([facility]) Extended Individual Psychotherapy - 45 min 10/28/2020 12:00:00 AM EDT - 10/28/2020 12:00:00 AM EDT [facility] ([facility]) Extended Individual Psychotherapy - 45 min 12:00:00 AM EDT [facility] ([facility]) Results ID Date Data Source [id number] 12/30/2020 05:30:00 [facility] Name Value Range Interpretation Code Description Data Monica rce(s) Supporting Document(s) SARS-CoV-2 RNA Resp Ql AMAYA+probe NOT DETECTED [facility] This lab was ordered by EBENEZER nieves and reported by EBENEZER Mata. ID Date Data Source [id number] 12/18/2020 06:14:00 PM EDT [facility] ([facility]) Name Value Range Interpretation Code Description Data Monica rce(s) Supporting Document(s) Chlamydia Dna Amplification Laboratory test result [facility] ([facility]) A negative test result does not exclude the possibility of infection because test results may be affected by improper specimen collection, technical error, specimen mix-up, concurrent antibiotic therapy, or the number of organisms in the specimen which may be below the sensitivity of the test. GC Dna Amplification Laboratory test result [facility] ([facility]) A negative test result does not exclude the possibility of infection because test results may be affected by improper specimen collection, technical error, specimen mix-up, concurrent antibiotic therapy, or the number of organisms in the specimen which may be below the sensitivity of the test. Trichomonas vaginalis (Amp) Laboratory test result [facility] ([facility]) A negative test result does not exclude the possibility of infection because test results may be affected by improper specimen collection, technical error, sample mix-up, or because the number of organisms in the sample is below the limit of detection of the test. ID Date Data Source [id number] 12/18/2020 06:14:00 PM EDT [facility] ([facility]) Name Value Range Interpretation Code Description Data Monica rce(s) Supporting Document(s) Bacteria identified in Urine by Culture Laboratory test result [facility] ([facility]) FULL REPORT IN LAB NOTES ([facility] and [facility] ). NO GROWTH CLINICAL SIGNIFICANCE 1 ORGANISM ID Date Data Source [id number] 12/18/2020 12:00:00 AM EDT [facility] Name Value Range Interpretation Code Description Data Monica rce(s) Supporting Document(s) SARS-CoV2 Rapid Antigen Negative [facility] This lab was ordered by [facility] and reported by [facility]. Procedure Social History Code Duration Value Status Description Data Source(s ) Smoking 01/26/2021 12:00:00 AM EST Unknown if ever smoked comp leted Unknown if ever smoked [facility] ([facility]) Smoking 01/18/2021 12:00:00 AM EST Unknown if ever smoked comp leted Unknown if ever smoked [facility] ([facility]) Smoking 11/23/2020 12:00:00 AM EDT Unknown if ever smoked comp leted Unknown if ever smoked [facility] ([facility]) Smoking 10/28/2020 12:00:00 AM EDT Unknown if ever smoked comp leted Unknown if ever smoked [facility] ([facility]) Vital Signs ID Date Data Source UNK Name Value Range Interpretation Code Description Data Source(s) Systolic blood pressure 128 mm[Hg] 128 mm[Hg] M [facility] ([facility], [facility]) Diastolic blood pressure 82 mm[Hg] 82 mm[Hg] [facility] ([facility], [facility]) Heart rate 83 /min 83 /min [facility] ([facility], [facility]) Respiratory rate 14 /min 14 /min [facility] ( [facility], [facility]) Oxygen saturation in Arterial blood by Pulse oximetry 96 % 96 % [facility] ([facility], [facility]) Body temperature 97.1 [degF] 97.1 [degF] [facility] ([facility], [facility]) Body weight 236.00 [lb_av] 236.00 [lb_av] [facility] T ([facility]) Body height 70 [in_i] 70 [in_i] [facility] ([facility]) 5'10" Body mass index (BMI) [Ratio] 33.9 kg/m2 33.9 k g/m2 [facility] ([facility]) Respiratory rate 16 /min 16 /min [facility]) Oxygen saturation in Arterial blood by Pulse oximetry 98 % 98 % [facility] ([facility]) Body temperature 98.9 [degF] 98.9 [degF] [facility] ([facility]) Body weight 250.00 [lb_av] 250.00 [lb_av] [facility] ([facility]) Body height 70 [in_i] 70 [in_i] [facility] ([facility]) 5'10" Body mass index (BMI) [Ratio] 35.9 kg/m2 35.9 k g/m2 [facility] ([facility]) Systolic blood pressure 147 mm[Hg] 147 mm[Hg] [facility] ([facility], [facility]) Diastolic blood pressure 94 mm[Hg] 94 mm[Hg] [facility] ([facility], [facility]) Heart rate 81 /min 81 /min [facility] ([facility], [facility])
== END 2021-02-06 02:51 | disposition home or self-care (01) ==
LOC: M ED 01:19
DX: F43.0 Acute stress reaction (principal); F32.A Depression, unspecified; F17.200 Nicotine dependence, unspecified, uncomplicated

== ENCOUNTER → 2021-09-23 | Outpatient (REF) | payer MEDICAID | LOC: M LAB REF 20:54 | PROVIDERS: ATTEND Physician Assistant | DX: R50.9 Fever, unspecified (principal); R05.9 Cough, unspecified ==